=== PATIENT | female | born 1970 | race African-American/Black ===

== ENCOUNTER 2024-06-26 09:04 | Outpatient (AMB) | payer OTHER, SELFPAY ==
--- NOTE | 2024-06-26 09:18 | A.OFFVIS_ITS ---
Intake Visit Reasons: Left knee pain and giving way Intake Note: Rylan is a 54 year old male who presents with complaints of progressively worsening left knee pain and giving way. The patient describes his pain as sharp and severe in nature. Most of the pain is along the medial and posterior aspects of his left knee. The patient states that he did injure his knee several years ago while playing basketball. He twisted his knee and had acute onset of pain. Has not been able to play basketball over the last year because of his pain and symptoms of instability. Has failed the last 6 weeks of conservative treatment which has included physical therapy exercises, Tylenol and anti-inflammatory medicines. At this point the patient's left knee pain and mechanical symptoms are interfering with his activities of daily living and his ability to sleep well through the night. 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 Physical Exam Const Other: Well-nourished well-developed very friendly male awake alert and oriented x3 in no acute distress Extrem Other: Bilateral lower extremity examination shows good capillary refill, no skin lesions noted, normal sensation light touch Left knee examination shows a minimal effusion, minimal crepitus with range of motion, tenderness along his medial joint line, positive Katharina's test, no instability Results Reviewed Results Reviewed: Standing full weight-bearing x-rays of the patient's left knee show mild diffuse joint space narrowing, no acute bony abnormalities Assessment & Plan Assessment & Plan (1) Tear of medial meniscus of left knee: Code(s): S83.242A - Other tear of medial meniscus, current injury, left knee, initial encounter Category: Medical Plan Mr. Rosario presents with progressively worsening left knee pain and mechanical symptoms most likely due to a medial meniscus tear. Thus, I will send the patient for an MRI of his left knee for further evaluation. I will see him back once the MRI is completed to discuss the findings and treatment options. Feel free to call me at any time should questions regarding his orthopedic management arise. Thank you very much for asking me to see this very friendly gentleman. I spent 21 minutes in reviewing the patient's records and imaging studies, seeing the patient and documenting in the medical record. Orders: Orders MR knee LT wo con Today S83.242A - Other tear of medial meniscus, current injury, left knee, initial encounter XR knee LT 3V Today M25.562 - Pain in left knee Coding Level of Care Code New Pt Level 3 (79831) Complex EM visit Add On G2211 Diagnoses Tear of medial meniscus of left knee S83.242A
== END 2024-06-26 09:42 | disposition home or self-care (01) ==
PROVIDERS: Visit Provider Orthopaedic Surgery
DX: S83.242A Other tear of medial meniscus, current injury, left knee, initial encounter (principal)
CPT/HCPCS: 99203; G2211

== ENCOUNTER → 2024-06-26 09:05 | Outpatient (BNV) | payer OTHER, SELFPAY | PROVIDERS: Visit Provider Radiology Diagnostic Radiology | DX: M25.562 Pain in left knee (principal) | CPT/HCPCS: 73562 ==

== ENCOUNTER 2024-06-26 14:29 | Outpatient (REF) | payer OTHER, SELFPAY ==
--- NOTE | ~2024-06-26 | XR_ITS ---
EXAMINATION: XR KNEE 3 VIEWS LEFT HISTORY: M25.562 - Pain in left knee COMPARISON: There are no prior studies available for comparison. FINDINGS: Three views of the left knee are submitted. Osseous mineralization is normal. There is no fracture or dislocation. There is mild narrowing of the medial compartment. The soft tissues are unremarkable. There is no joint effusion. XR/XR knee LT 3V IMPRESSION: Mild narrowing of the medial compartment. Electronically signed by: Deepak Morales MD 06/26/2024 01:21 PM CARIE
== END 2024-06-26 14:30 | disposition home or self-care (01) ==
LOC: HO.HOSX 14:29
PROVIDERS: Visit Provider Orthopaedic Surgery
DX: M25.562 Pain in left knee (principal)
CPT/HCPCS: 73562

== ENCOUNTER → 2024-07-17 07:52 | Outpatient (BNV) | payer OTHER, SELFPAY | PROVIDERS: Visit Provider Radiology Diagnostic Radiology | DX: M17.12 Unilateral primary osteoarthritis, left knee (principal); M71.22 Synovial cyst of popliteal space [Baker], left knee | CPT/HCPCS: 73721 ==

== ENCOUNTER 2024-07-17 08:10 | Outpatient (REF) | payer OTHER, SELFPAY | END 2024-07-17 08:11 | disposition home or self-care (01) | LOC: HO.MRI 08:10 | PROVIDERS: Visit Provider Orthopaedic Surgery | DX: S83.242A Other tear of medial meniscus, current injury, left knee, initial encounter (principal) | CPT/HCPCS: 73721 ==

== ENCOUNTER 2024-08-14 15:13 | Outpatient (REF) | payer OTHER, MEDICAID, SELFPAY ==
--- OUTSIDE RECORDS SUMMARY | 2024-08-15 17:58 | XMS_ITS | Clinical Summary ---
Author Organization [facility] it Address [address] [place] [address] Care Team Providers Care Chemicals Distiller Name Role Phone Royer Snow MD Primary Care Provider [phone] Surgical History Surgery Date Site/Laterality Comments OTHER SURGICAL HISTORY PROCEDURE: DENIES PREVIOUS SURGERY Medical History Medical History Date Comments Allergic rhinitis, cause unspecified 10/04/2005 DX:Allergic rhinitis, cause unspecified Genital herpes, unspecified 10/04/2005 DX:G enital herpes, unspecified Carpal tunnel syndrome 10/04/2005 DX:Carpal tunnel syndrome Unspecified asthma(493.90) 10/04/2005 DX:Un specified asthma(493.90) Family History Medical History Relation Name Comments Other: Chronic renal failure Brother on dialysis, pending transplant Glaucoma Father Other: AIDS Father Stroke Father age 52 Hypertension Maternal Grandfather Other: Kidney disease Maternal Grandfather Hypertension Maternal Grandmother Other: kidney disease Maternal Grandmother Hypertension Mother Other: AIDS Mother age 51 Hypertension Uncle 1 Other: Chronic renal failure Uncle 2 on dialysis Relation Name Status Comments Brother Father STROKE Maternal Grandfather Maternal Grandmother Mother AIDS Uncle 1 Uncle 2 Social History Tobacco Use Types Packs/Day Years Used Date Smoking Tobacco: Never Smokeless Tobacco: Never Alcohol Use Standard Drinks/Week Comments Yes 0 (1 standard drink = 0.6 oz pur e alcohol) Sex and Gender Information Value Date Recorded Sex Assigned at Not on file Legal Sex Male 12:08 PM EST Gender Identity Not on file Sexual Orientation Not on file Obstetrics History Last Filed Vital Signs Vital Sign Reading Time Taken Comments Blood Pressure 100/70 12/21/2021 7:50 AM EDT Pulse 72 12/21/2021 7:50 AM EDT Temperature - - Respiratory Rate - - Oxygen Saturation - - Inhaled Oxygen Concentration - - Weight 63.5 kg (140 lb) 12/21/2021 7:50 AM EDT Height 170.2 cm (5' 7 ) 12/21/2021 7:50 AM EDT Body Mass Index 21.93 12/21/2021 7:50 AM EDT Plan of Treatment Health Maintenance Due Date Last Done Comments Pneumococcal Vaccine: 50+ Years (1 of 2 - PCV) 01/07/1987 Pneumococcal Vaccine: Pediatrics (0 to 5 Years) and At-Risk Patients (6 to 64 Years) (1 of 2 - PCV) 01/07/1987 Zoster Vaccines (1 of 2) 01/07/2018 Cholesterol Screening (Lipid Panel) 05/04/2022 Colorectal Cancer Screening: Colonoscopy 05/04/2022 Depression Screening 05/04/2022 HIV Screening 05/04/2022 Hepatitis C Screening 05/04/2022 Social Influencers of Health Screening 05/04/2022 DTaP,Tdap,and Td Vaccines (3 - Td or Tdap) 02/23/2023 02/23/2013, 08/06/2004 COVID-19 Vaccine (3 - 2023-2 5 season) 2024 10/30/2020, 10/09/2020 Influenza Vaccine (#1) 2024 04/23/2010 Hepatitis A Vaccines Aged Out 10/04/2008 No long er eligible based on patient's age to complete this topic Hepatitis B Vaccines Completed 04/04/2009, 11/08/2008, 10/04/2008 HIB Vaccines Aged Out No longer eligi ble based on patient's age to complete this topic HPV Vaccines Aged Out No longer eligi ble based on patient's age to complete this topic IPV Vaccines Aged Out No longer eligi ble based on patient's age to complete this topic MMR Vaccines Aged Out No longer eligi ble based on patient's age to complete this topic Meningococcal ACWY Vaccine Aged Out N o longer eligible based on patient's age to complete this topic Meningococcal B Vacine Aged Out No lo nger eligible based on patient's age to complete this topic RSV Immunization Patients Under 20 months Aged Out No longer eligible b ased on patient's age to complete this topic Varicella Vaccines Aged Out No longer eligible based on patient's age to complete this topic Care Teams Chemicals Distiller Relationship Specialty Start Date End Date Royer Snow MD [facility] [address], [address] [place], [place] PCP - General Internal Medicine 12/10/13
--- OUTSIDE RECORDS SUMMARY | 2024-08-15 17:58 | XMS_ITS | Data Portability ---
Author Organization CATERINA Morgan [facility] [address] Address [address] [place] [address] Assessment No assessment recorded. Plan of Treatment Reminders Order Date Submit Date Provider Last Modified By Organization Details Last Modified Time Details Appointments None recorded. Lab None recorded. Referral None recorded. Procedures None recorded. Surgeries None recorded. Imaging None recorded. Medication Orders meloxicam 15 mg tablet 2023 [address] [facility] #[id number], [phone] [place], [address], 19:28:13 Patient TargetsNo targets recorded. Patient Instructions Encounter Date Encounter Id Patient Instructions Last Modified By Organization Details Last Modified Time 04/28/2024 [id number] shoulder pain: care instructions Not available 04/28/2024 19:28:11 biceps tendinitis: exercises Not available 04/28/2024 19:28:11 Reason for Referral None Reported. Problems Name Problem SNOMED Code Status Onset Date Resolution Date Notes Provider Name and Address Organization Details Recorded Time Asthma 770633028 Active Carol sexton PA - [facility] 04/28/2024 19:18:34 Problem Notes None recorded. Medical Equipment None Reported. Allergies Allergen ID Allergen Name Allergen Category Reaction Reaction Severity Criticality Documentation Date Start Date Code Code System Note Provider Name and Address Organization Details Recorded Time 0257099 aspirin medicatio n Not available Not available Not available 04/28/2024 1191 RxNorm Carol sexton PA - [facility] 19:18:00 8843429 Product containin g penicilli n (product) medicatio n Not available Not available Not available 04/28/2024 95727 8001 SNOMED Carol sexton PA - [facility] 19:18:07 Medications Name Sig Start Date Stop Date Status Note LastModified by Organization Details LastModified Time meloxicam 15 mg tablet TAKE 1 TABLET BY MOUTH EVERY DAY FOR 30 DAYS active Not Available Not Available No t Available albuterol sulfate active Not Available Not Available Not Available Vitals Date Recorded Body height Body mass index (BMI) Body weight Oxygen saturation Oxygen saturation in Arterial blood by Pulse oximetry Heart rate Respiratory rate Body temperature Systolic blood pressure Diastolic blood pressure Provider Name and Address Organization Details Last Updated DateTime 170.18 cm 22.4 kg/m2 66904.7 1 g 100 % 100 % 98 /min 20 /min 97.8 [degF] 110 mm[Hg] 70 mm[Hg] Carol Ruvalcaba PA - [facility] 19:26:08 Social History Question Answer Notes LastModified by Organizat ion Details LastModified Time Tobacco Smoking Status Never Smoker Carol sexton PA - [facility] 04/28/2024 19:19:03 What Is Your Level Of Alcohol Consumption? None Information not available 04/28/2024 Are You Currently Employed? Yes Information not available 04/28/2024 Have You Had A Flu Shot This Season? No Information not available 04/28/2024 If No, Would You Like A Flu Shot Today? No Information not available 04/28/2024 What Is Your Water Source? Other Information not available 04/28/2024 What Is Your Heat Source? Other Information not available 04/28/2024 Are You Passively Exposed To Smoke? No Information no t available 04/28/2024 Do You Use Any Illicit Or Recreational Drugs? No Information not available 04/28/2024 Have You Recently Traveled Abroad? No Information not available 04/28/2024 Do You Or Have You Ever Used Any Other Forms Of Tobacco Or Nicotine? No Information not available 04/28/2024 Sex: Unknown Functional Status None recorded. Mental Status None recorded. Family History Relationship Description Onset Age of this Age Resolved Age Notes LastModified by Organization Details LastModified Time Father No current problems or disability Not available 04/28 19:18:37 Mother No current problems or disability Not available 04/28 19:18:37 Medical History No medical history recorded. Past Encounters Encounter ID Performer Location Encounter Start Date Encounter Closed Date Diagnosis/Indication Diagnosis SNOMED-CT Code Diagnosis ICD10 Code Diagnosis Note [id number] [address] [facility] , [place] [address] 05/13/2016 11:20:44 05/13/2016 11:36:56 [id number] [address] [facility] , [place] [id number] 08/02/2020 13:25:56 08/02/2020 14:15:46 [id number] [address] [facility] [place] [address] 02/15/2021 08:30:13 02/15/2021 09:22:09 [id number] [facility] [address] [facility] [place] [address] 04/28/2024 19:09:11 04/28/2024 19:28:53 Biceps tendinitis [id number] M75.22 You have been diagnosed with a Biceps tendonitis .. The following are my recommenda tion to help you with your discomfort .1. Stretch in the AM and PM - especially when you first wake up.2. Heating pad or Ice to the area whatever feels better.3. No heavy lifting and no sports until you are feeling a little better.4. OK to take Tylenol to help supplement with the pain unless you have an allergy.5. Stop Smoking if you smoke this can increase muscle/lig ament pain - this has been proven in studies.6. Do not carry heavy items with this arm. If any of the following symptoms develop:1. Numbness in your hand.2. Worsening pain3. Lymph nodes in neck or armpit4. Skin Redness5. Heat from the muscle. Thank you for using [employer] , please call if you have any questions or concerns. Health Concerns Section Related Observation LastModified by Organization Detai ls LastModified Time None Recorded Concern Status LastModified by Organization Details LastModified Time None Recorded Advance Directives Directive None Recorded Payers Encounter Date Sequence Insurance Name Policy Number Policy Vega Covered Member ID Vega Member ID Guarantor Name 08/02/2020 1 [facility] [id number] Rylan Rosario [id number] Rylan Rosario 04/28/2024 1 [facility] [id number] Rylan Rosario [id number] Rylan Rosario Notes Date Note Type Note Provider Name and Address Organization Details Recorded Time 04/28/2024 text/html 54 y/o male here with L shoulder pain starting this morning. 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
== END 2024-08-14 15:14 | disposition home or self-care (01) ==
LOC: HO.HOSX 15:13
PROVIDERS: Visit Provider Orthopaedic Surgery
DX: Z13.89 Encounter for screening for other disorder (principal)

== ENCOUNTER 2024-08-16 09:33 | Outpatient (AMB) | payer OTHER, SELFPAY ==
--- NOTE | 2024-08-16 09:40 | A.OFFVIS_ITS ---
Intake Visit Reasons: OV- Left knee MRI review Intake Note: Rylan is a 54 year old male who presents with complaints of progressively worsening left knee pain and giving way. The patient describes his pain as sharp and severe in nature. Most of the pain is along the medial and posterior aspects of his left knee. The patient states that he did injure his knee several years ago while playing basketball. He twisted his knee and had acute onset of pain. Has not been able to play basketball over the last year because of his pain and symptoms of instability. Has failed the last 6 weeks of conservative treatment which has included physical therapy exercises, Tylenol and anti-inflammatory medicines. At this point the patient's left knee pain and mechanical symptoms are interfering with his activities of daily living and his ability to sleep well through the night. 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 Physical Exam Const Other: Well-nourished well-developed very friendly male awake alert and oriented x3 in no acute distress Extrem Other: Bilateral lower extremity examination shows good capillary refill, no skin lesions noted, normal sensation light touch Left knee examination shows a minimal effusion, mild crepitus with range of motion, tenderness along his medial joint line, positive Katharina's test, no instability Results Reviewed Results Reviewed: Standing full weight-bearing x-rays of the patient's left knee show mild diffuse joint space narrowing, no acute bony abnormalities MRI of the patient's left knee shows mild diffuse degenerative changes as well as a tear of the medial meniscus Assessment & Plan Assessment & Plan (1) Tear of medial meniscus of left knee: Code(s): S83.242A - Other tear of medial meniscus, current injury, left knee, initial encounter Category: Medical Plan Mr. Rosario presents with progressively worsening left knee pain and mechanical symptoms due to a medial meniscus tear. I had a lengthy discussion with the patient regarding the treatment options. At this point he has failed continued non operative treatments. The risks and benefits of left knee arthroscopic surgery were discussed at length with the patient. The patient wishes to proceed with surgery. Surgery will most likely involve left knee arthroscopic partial medial meniscectomy. The patient does understand that he may not get 100% relief of his symptoms depending on the severity of his degenerative changes. The patient will be scheduled for next available date. He will follow-up as instructed. I spent 20 minutes in reviewing the patient's records and imaging studies, seeing the patient and documenting in the medical record. Coding Level of Care Code Est Pt Level 3 (64274) Complex EM visit Add On G2211 Diagnoses Tear of medial meniscus of left knee S83.242A
--- OUTSIDE RECORDS SUMMARY | 2024-08-16 11:23 | XMS_ITS | Clinical Summary ---
Author Organization [facility] it Address [address] [place] [address] Care Team Providers Care Caterers Helper Name Role Phone Royer Snow MD Primary Care Provider [phone] Surgical History Surgery Date Site/Laterality Comments OTHER [...] age to complete this topic Care Teams Caterers Helper Relationship Specialty Start Date End Date Royer Snow MD [facility] [address], [address] [place], [place] PCP - General Internal Medicine 12/10/13
== END 2024-08-16 09:55 | disposition home or self-care (01) ==
LOC: HO.HOS 09:34
PROVIDERS: Visit Provider Orthopaedic Surgery
DX: S83.242A Other tear of medial meniscus, current injury, left knee, initial encounter (principal)
CPT/HCPCS: 99213; G2211

== ENCOUNTER → 2024-08-16 09:33 | Outpatient (BNVA) | payer OTHER, SELFPAY | PROVIDERS: Visit Provider Orthopaedic Surgery ==

== ENCOUNTER 2024-09-11 13:59 | Outpatient (AMB) | payer OTHER, SELFPAY ==
--- NOTE | 2024-09-11 14:05 | MHC.OFFVIS ---
Intake Visit Reasons: Bilateral knee pains and giving way Intake Note: Rylan is a 54 year old male who presents with complaints of progressively worsening left knee pain and giving way. The patient describes his pain as sharp and severe in nature. Most of the pain is along the medial and posterior aspects of his left knee. The patient states that he did injure his knee several years ago while playing basketball. He twisted his knee and had acute onset of pain. Has not been able to play basketball over the last year because of his pain and symptoms of instability. Has failed the last 6 weeks of conservative treatment which has included physical therapy exercises, Tylenol and anti-inflammatory medicines. At this point the patient's left knee pain and mechanical symptoms are interfering with his activities of daily living and his ability to sleep well through the night. The patient also reports progressively worsening right knee pain and giving way. He describes his right knee pain as sharp in nature. His right knee pain has gotten worse over the last year in spite of continued non operative treatments. He states that his right knee will give out several times per day. 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 Physical Exam Const Other: Well-nourished well-developed very friendly male awake alert and oriented x3 in no acute distress Extrem Other: Bilateral lower extremity examination shows good capillary refill, no skin lesions noted, normal sensation light touch Bilateral knee examination shows minimal effusions, minimal crepitus with range of motion, tenderness along his medial joint lines, positive Katharina's test, no instability Results Reviewed Results Reviewed: Standing full weight-bearing x-rays of the patient's bilateral knee show minimal diffuse joint space narrowing, no acute bony abnormalities MRI of the patient's left knee shows mild diffuse degenerative changes as well as a tear of the medial meniscus Assessment & Plan Assessment & Plan (1) Tear of medial meniscus of right knee: Code(s): S83.241A - Other tear of medial meniscus, current injury, right knee, initial encounter Category: Medical Plan Mr. Rosario presents with progressively worsening left knee pain and mechanical symptoms due to a medial meniscus tear. At this point the patient has failed continued non operative treatments. The risks and benefits of left knee arthroscopic surgery were discussed at length with the patient. The patient wishes to proceed with surgery. Surgery will most likely involve left knee arthroscopic partial medial meniscectomy. The patient does understand that he may not get 100% relief of his symptoms depending on the severity of his degenerative changes. The patient also has right knee pain and giving way most likely due to a medial meniscus tear. Thus, I will send the patient for an MRI of his right knee for further evaluation. I will see him back once the MRI is completed to discuss the findings and treatment options. Feel free to call me at any time should questions regarding his orthopedic management arise. I spent 22 minutes in reviewing the patient's records and imaging studies, seeing the patient and documenting in the medical record. Orders: Orders MR knee RT wo con 09/26/24 S83.241A - Other tear of medial meniscus, current injury, right knee, initial encounter Coding Level of Care Code Est Pt Level 3 (06358) Complex EM visit Add On G2211 Diagnoses Tear of medial meniscus of right knee S83.241A
--- OUTSIDE RECORDS SUMMARY | 2024-09-11 17:06 | XMS_ITS | Clinical Summary ---
Author Organization [facility] it Address [address] [place] [address] Care Team Providers Care Refinery Pipeline Operator Name Role Phone Royer Snow MD Primary Care Provider [phone] Surgical History Surgery Date Site/Laterality Comments OTHER [...] age to complete this topic Meningococcal B Vaccine Aged Out No l onger eligible based on patient's age to complete this topic RSV Immunization Patients Under 20 months Aged Out No longer eligible b ased on patient's age to complete this topic Varicella Vaccines Aged Out No longer eligible based on patient's age to complete this topic Care Teams Refinery Pipeline Operator Relationship Specialty Start Date End Date Royer Snow MD [facility] [address], [address] [place], [place] PCP - General Internal Medicine 12/10/13
--- OUTSIDE RECORDS SUMMARY | 2024-09-11 17:07 | XMS_ITS | Data Portability ---
Author Organization CATERINA Morgan s [address] Address [address] [place] [address] Assessment No assessment recorded. Plan of Treatment Reminders Order Date Submit Date Provider Last Modified By Organization Details Last Modified Time Details Appointments None recorded. Lab None recorded. Referral None recorded. Procedures None recorded. Surgeries None recorded. Imaging None recorded. Medication Orders meloxicam 15 mg tablet 2023 024 [facility]/Pharmacy #[id number], [phone] [place], [address], 19:28:13 Patient TargetsNo targets recorded. Patient Instructions Encounter Date Encounter Id Patient Instructions Last Modified By Organization Details Last Modified Time 04/28/2024 [id number] shoulder pain: care instructions Not available 04/28/2024 19:28:11 biceps tendinitis: exercises Not available 04/28/2024 19:28:11 Reason for Referral None Reported. Problems Name Problem SNOMED Code Status Onset Date Resolution Date Notes Provider Name and Address Organization Details Recorded Time Asthma 886378557 Active Carol sexton PA - [facility] 04/28/2024 19:18:34 Problem Notes None recorded. Medical Equipment None Reported. Allergies Allergen ID Allergen Name Allergen Category Reaction Reaction Severity Criticality Documentation Date Start Date Code Code System Note Provider Name and Address Organization Details Recorded Time 6705758 aspirin medicatio n Not available Not available Not available 04/28/2024 1191 RxNorm Carol sexton PA - [facility] 19:18:00 1879441 Product containin g penicilli n (product) medicatio n Not available Not available Not available 04/28/2024 07006 8001 SNOMED Carol sexton [facility] - [facility] [...] Last Updated DateTime 170.18 cm 22.4 kg/m2 22802.7 1 g 100 % 100 % 98 [...] SNOMED-CT Code Diagnosis ICD10 Code Diagnosis Note [id number] [address] [facility] , [place] [address] 05/13/2016 11:20:44 05/13/2016 11:36:56 [id number] [address] [facility] , [place] [address] 08/02/2020 13:25:56 08/02/2020 14:15:46 [id number] [address] [place] [address] 02/15/2021 08:30:13 02/15/2021 09:22:09 [id number] CATERINA Guy [address] [place] [address] 04/28/2024 19:09:11 04/28/2024 19:28:53 Biceps tendinitis [id number] M75.22 You have been diagnosed with a [...] from the muscle. Thank you for using [employer] , please call if you have any questions or concerns. Health Concerns Section Related Observation LastModified by Organization Detai ls LastModified Time None Recorded Concern Status LastModified by Organization Details LastModified Time None Recorded Advance Directives Directive None Recorded Payers Encounter Date Sequence Insurance Name Policy Number Policy Vega Covered Member ID Vega Member ID Guarantor Name 08/02/2020 1 [facility] [id number] Rylan Rosario [id number] Rylan Rosario 04/28/2024 1 [facility] [id number] Rylan Rosario [id number] Rylan Rosario Notes Date Note Type Note Provider Name and Address Organization Details Recorded Time 04/28/2024 text/html 54 y/o male here with L shoulder pain starting this morning. 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
== END 2024-09-11 14:17 | disposition home or self-care (01) ==
LOC: HO.HOS 14:00
PROVIDERS: PCP Nurse Practitioner Family; Visit Provider Orthopaedic Surgery
DX: S83.241A Other tear of medial meniscus, current injury, right knee, initial encounter (principal)
CPT/HCPCS: 99214; G2211

== ENCOUNTER → 2024-09-11 13:59 | Outpatient (BNVA) | payer OTHER, MEDICAID, SELFPAY | PROVIDERS: PCP Nurse Practitioner Family; Visit Provider Orthopaedic Surgery ==

== ENCOUNTER 2024-09-14 07:04 | Outpatient (REF) | payer OTHER, SELFPAY ==
--- NOTE | ~2024-09-14 | MR_ITS ---
EXAMINATION: MRI RIGHT KNEE WITHOUT CONTRAST HISTORY: S83.241A - Other tear of medial meniscus, current injury, right knee COMPARISON: There are no prior studies for comparison. TECHNIQUE: Coronal T1 and fat-suppressed proton density, sagittal proton density and fat-suppressed proton density, and axial fat suppressed T2 weighted MR images of the right knee were obtained. FINDINGS: The examination is limited by patient motion. Bone marrow: Bone marrow signal intensity is normal. Joint effusion: There is a large suprapatellar joint effusion. Tejeda's cyst: There is a small Tejeda's cyst. Articular cartilage: There is a focal cartilage defect involving the medial femoral condyle (series 13, image 19). There are tiny cartilage fissures involving the medial and lateral patellar facets a series 8, image 8). Muscles/soft tissues: The visualized muscles demonstrate normal signal intensity. Anterior cruciate ligament: Intact Posterior cruciate ligament: Intact Medial collateral ligament: Intact Lateral collateral ligament: Intact Medial meniscus: There is a horizontally oriented linear focus of increased signal intensity within the posterior body and posterior horn which contacts the inferior joint surface, consistent with a tear. The anterior horn is intact. Lateral meniscus: Intact Flexor mechanism: The popliteus, gastrocnemius, and hamstring tendons are intact. Quadriceps tendon: Intact Patellar tendon: Intact Patellar retinacula: Intact MR/MR knee RT wo con IMPRESSION: 1. Focal cartilage defect involving the medial femoral condyle. Tiny cartilage fissures involving the patellar cartilage. 2. Horizontal tear of the posterior body and posterior horn of the medial meniscus. 3. Large suprapatellar joint effusion. Small Tejeda's cyst. Electronically signed by: Deepak Morales MD 09/14/2024 08:07 AM EDT
--- OUTSIDE RECORDS SUMMARY | 2024-09-14 07:07 | XMS_ITS | Data Portability ---
Author Organization CATERINA Morgan s [address] Address [address] [place] [address] Assessment No assessment recorded. Plan of Treatment Reminders Order Date Submit Date Provider Last Modified By Organization Details Last Modified Time Details Appointments None recorded. Lab None recorded. Referral None recorded. Procedures None recorded. Surgeries None recorded. Imaging None recorded. Medication Orders meloxicam 15 mg tablet 2023 024 [facility]/Pharmacy #[id number], [phone] [place], [address], 19:28:13 Patient TargetsNo targets recorded. Patient Instructions Encounter Date Encounter Id Patient Instructions Last Modified By Organization Details Last Modified Time 04/28/2024 [id number] shoulder pain: care instructions Not available 04/28/2024 19:28:11 biceps tendinitis: exercises Not available 04/28/2024 19:28:11 Reason for Referral None Reported. Problems Name Problem SNOMED Code Status Onset Date Resolution Date Notes Provider Name and Address Organization Details Recorded Time Asthma 794191073 Active Carol sexton PA - [facility] 04/28/2024 19:18:34 Problem Notes None recorded. Medical Equipment None Reported. Allergies Allergen ID Allergen Name Allergen Category Reaction Reaction Severity Criticality Documentation Date Start Date Code Code System Note Provider Name and Address Organization Details Recorded Time 3757326 aspirin medicatio n Not available Not available Not available 04/28/2024 1191 RxNorm Carol sexton PA - [facility] 19:18:00 3729860 Product containin g penicilli n (product) medicatio n Not available Not available Not available 04/28/2024 00011 8001 SNOMED Carol sexton PA - [facility] [...] Last Updated DateTime 170.18 cm 22.4 kg/m2 61413.7 1 g 100 % 100 % 98 [...] SNOMED-CT Code Diagnosis ICD10 Code Diagnosis Note [id number] [address] [facility] , [place] [address] 05/13/2016 11:20:44 05/13/2016 11:36:56 [id number] [address] [facility] , [place] [address] 08/02/2020 13:25:56 08/02/2020 14:15:46 [id number] [address] [place] [address] 02/15/2021 08:30:13 02/15/2021 09:22:09 [id number] CATERINA Guy [address] [place] [address] 04/28/2024 19:09:11 04/28/2024 19:28:53 Biceps tendinitis [id number] M75.22 You have been diagnosed with a [...] from the muscle. Thank you for using [employer] , please call if you have any questions or concerns. Health Concerns Section Related Observation LastModified by Organization Detai ls LastModified Time None Recorded Concern Status LastModified by Organization Details LastModified Time None Recorded Advance Directives Directive None Recorded Payers Encounter Date Sequence Insurance Name Policy Number Policy Vega Covered Member ID Vega Member ID Guarantor Name 08/02/2020 1 [facility] [id number] Rylan Rosario [id number] Rylan Rosario 04/28/2024 1 [facility] [id number] Rylan Rosario [id number] Rylan Rosario Notes Date Note Type Note Provider Name and Address Organization Details Recorded Time 04/28/2024 text/html 54 y/o male here with L shoulder pain starting this morning. 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
== END 2024-09-14 07:05 | disposition home or self-care (01) ==
LOC: HO.MRI 07:04
PROVIDERS: Visit Provider Orthopaedic Surgery
DX: S83.241A Other tear of medial meniscus, current injury, right knee, initial encounter (principal)
CPT/HCPCS: 73721

== ENCOUNTER → 2024-09-14 07:09 | Outpatient (BNV) | payer OTHER, SELFPAY | PROVIDERS: Visit Provider Radiology Diagnostic Radiology | DX: S83.241A Other tear of medial meniscus, current injury, right knee, initial encounter (principal); M71.21 Synovial cyst of popliteal space [Baker], right knee | CPT/HCPCS: 73721 ==

== ENCOUNTER 2024-09-17 07:24 | Day surgery (SDC) | payer OTHER, SELFPAY ==
[2024-09-17 07:36] VITALS: BP 142/87; PULSE 80; RESP 18; TEMP 36.6; O2SAT 97; BMI 23.1
[2024-09-17] MEDS: Lactated Ringers 1,000 ML 50 ML IVCONT (07:53)
--- NOTE | 2024-09-17 08:30 | P.CONAN_ITS ---
[facility] Active Problems Active Problems: All Active Problems (Updated 09/17/24 @ 07:40 by Jen Bocanegra RN) Tear of medial meniscus of right knee (Acute) Right shoulder pain (Acute) Tear of medial meniscus of left knee (Acute) Left knee pain (Acute) Past Medical History Medical History (Updated 09/17/24 @ 07:40 by Jen Bocanegra RN) Seasonal allergies Family History Family history of problems with anesthesia: No Surgical History Surgical History (Updated 09/17/24 @ 07:40 by Jen Bocanegra RN) [place] teeth extracted History of Problems with Anesthesia: No Social History Social History Patient Tobacco Use Status: Never used Tobacco Have you been hit, kicked, punched, or otherwise hurt by someone within the past year? 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 Meds Allergies Allergy/AdvReac Type Severity Reaction Status Date / Time aspirin Allergy Unknown Unknown Verified 09/11/24 14:11 penicillin G Allergy Unknown Unknown Verified 09/11/24 14:11 Active Medications: Current Medications Lactated Ringer's (Lr) 1,000 mls @ 50 mls/hr IVCONT .Q20H MICAELA Last Admin: 09/17/24 07:53 Dose: 50 mls/hr Home Medications ?Medication ?Instructions ?Recorded ?Confirmed ?Last Taken ?Type ruxolitinib 1.5 % topical cream appl topical 06/26/24 09/11/24 09/10/24 History (Opzelura) albuterol sulfate 90 mcg/actuation 1 puff inhalation QID PRN wheezing 09/17/24 09/17/24 09/10/24 History aerosol inhaler (Ventolin HFA) famotidine 20 mg tablet 20 mg PO BEDTIME 09/17/24 09/17/24 09/16/24 History loratadine 10 mg tablet 10 mg PO DAILY 09/17/24 09/17/24 09/10/24 History Exam Height,Weight and Vital Signs: Height 5 ft 7 in Weight 66.8 kg Last Vital Signs Temp 98 F 09/17/24 07:36 Pulse 80 09/17/24 07:36 Resp 18 09/17/24 07:36 BP 142/87 H 09/17/24 07:36 Pulse Ox 97 09/17/24 07:36 O2 Del Method Room Air 09/17/24 07:36 Airway Mallampati Class: II TM Dist: >3cm Neck ROM: Full Heart: rrr Lungs: cta Assessment and Plan Assessment Anesthesia Assessment: Anesthesia Plan Discussed and Chart Reviewed Final Anesthetic Review Family History of Problems with Anesthesia: No History of Problems with Anesthesia: No NPO: Yes ASA Class: II Final Preanesthetic Review: No Changes in Pt Med Stat, Meds/Allgs Chart Reviewed and Consent Obtained/Reviewed Patient Risk: Low Procedure Risk: Low Anesthetic Plan Anesthetic Plan: GA Disposition: Standard PACU
[2024-09-17] MEDS: Clindamycin Phosphate/D5W 900 MG/50 ML PIGGYBACK 50 MG IV (08:55)
[2024-09-17 09:42] VITALS: BP 124/74; PULSE 85; RESP 16; TEMP 36.8; O2SAT 100
[2024-09-17 09:45] VITALS: BP 115/81; PULSE 80; RESP 16; O2SAT 99
[2024-09-17 09:50] VITALS: BP 118/79; PULSE 83; RESP 16; O2SAT 99
[2024-09-17 09:55] VITALS: PULSE 74; RESP 18; O2SAT 99
--- NOTE | 2024-09-17 09:56 | PM.OP ---
Brief Operative Note Date of Service: 09/17/24 Pre-op diagnosis: Left knee medial meniscus tear, left knee degenerative joint disease Post-op diagnosis: same Procedure: Left knee arthroscopic partial medial meniscectomy, left knee arthroscopic chondroplasty of the undersurface of the patella, medial femoral condyle and trochlear groove Implants: none Surgeon: Valerio Gifford MD Anesthesia: GLMA Was an Fixed Wing Aircraft Flight Mechanic used for this Procedure?: No Estimated blood loss (mL): 10 Pathology: none sent Condition: stable Disposition: PACU
--- NOTE | 2024-09-17 09:57 | W.PM.OPN ---
Operative Note Operative Note Date of Service: 09/17/24 Narrative: After the patient was identified as Rylan Rosario and his left knee was initialed by myself they were brought to the operating room where general anesthesia was induced by the anesthesiologist in routine fashion. Because of the patient's allergy to penicillin he was given 900 mg of IV clindamycin preoperatively for infection prophylaxis. The patient's left lower extremity was prepped and draped in sterile fashion. A formal time-out was completed. Marcaine was injected into the planned incision sites as well as the patient's left knee joint. A #11 scalpel blade was used to make an anterolateral portal 1 cm proximal to the joint line and 1 cm lateral to the patellar tendon. Blunt trocar technique was used to enter the suprapatellar pouch with the knee in extension. Diagnostic arthroscopy showed multiple bands of thickened plica which would be excised at the end of the procedure. There were no loose bodies or abnormalities found in either the medial or lateral gutters. The articular surface of the patella showed diffuse grades 1 and 2 degenerative changes. The trochlear groove articular surface showed diffuse grades 2 and 3 degenerative changes. The patient's knee was flexed to 45 degrees and a valgus force was placed upon it. The medial compartment was entered. An anteromedial portal was made 1 cm proximal to the joint line and 1 cm medial to the patellar tendon. Probing of the medial meniscus showed a radial tear of the posterior horn. A partial medial meniscectomy was performed using the arthroscopic shaver. Following the partial meniscectomy the remainder of the meniscus tissue was stable. There were diffuse grades 1 and 2 degenerative changes of the medial femoral condyle as well as grade 1 degenerative changes of the medial tibial plateau. The articular surface of the medial femoral condyle was then made smooth using the arthroscopic shaver. The articular surface of the medial tibial plateau was already smooth so no chondroplasty was indicated. The patient's knee was placed into a neutral position. There was no injury to the anterior cruciate ligament. The patient's knee was then placed in the figure of 4 position and the lateral compartment was entered. There was no evidence of lateral meniscus tearing. There were minimal degenerative changes of the lateral femoral condyle and lateral tibial plateau. The patient's knee was once again brought into extension and the suprapatellar pouch was entered. The arthroscopic shaver and the ArthroCare Wand were used to excise the thickened bands of plica. The undersurface of the patella and the trochlear groove articular surface were then made smooth using the arthroscopic shaver. The knee joint was irrigated and then drained. All arthroscopic instruments were removed. The 2 portals were closed with 3-0 nylon interrupted suture. The knee joint was injected with Marcaine. Dry sterile dressing and Claude bandages were placed over the patient's knee. The patient was awoken and extubated in the operating room. The patient was transferred to the recovery room in stable condition.
[2024-09-17 10:10] VITALS: BP 131/78; PULSE 70; RESP 16; TEMP 36.6; O2SAT 99
== END 2024-09-17 10:47 | disposition home or self-care (01) ==
PROVIDERS: PCP Nurse Practitioner Family; Visit Provider Orthopaedic Surgery
PROC: (CPT 29870; principal; 2024-09-17 09:00)
DX: S83.242A Other tear of medial meniscus, current injury, left knee, initial encounter (principal); M17.12 Unilateral primary osteoarthritis, left knee; M67.52 Plica syndrome, left knee; M25.562 Pain in left knee; M23.52 Chronic instability of knee, left knee; X50.1XXA Overexertion from prolonged static or awkward postures, initial encounter; Y93.67 Activity, basketball; Y92.9 Unspecified place or not applicable; Y99.9 Unspecified external cause status; J30.2 Other seasonal allergic rhinitis; Z79.899 Other long term (current) drug therapy; Z88.0 Allergy status to penicillin; Z88.6 Allergy status to analgesic agent
CPT/HCPCS: 29881; J0131; J0171; J0736; J1100; J1885; J2003; J2250; J2405; J2704; J2795; J3010

== ENCOUNTER → 2024-09-17 07:24 | Outpatient (BNV) | payer OTHER, SELFPAY | PROVIDERS: PCP Nurse Practitioner Family; Visit Provider Orthopaedic Surgery | DX: S83.242A Other tear of medial meniscus, current injury, left knee, initial encounter (principal) | CPT/HCPCS: 29881 ==

== ENCOUNTER 2024-10-02 13:41 | Outpatient (AMB) | payer OTHER, SELFPAY ==
--- NOTE | 2024-10-02 13:43 | MHC.OFFVIS ---
Intake Visit Reasons: Bilateral knee pains, PO LT knee 09/17/24 DR, Right knee pain and giving way Intake Note: Rylan is a 54 year old male who presents with complaints of progressively worsening right knee pain and giving way. The patient did undergo left knee arthroscopic surgery on 09/17/2024. He reports minimal discomfort in his left knee. He describes his right knee pain as sharp in nature. He did injure his right knee several years ago. Since that time his symptoms have gotten progressively worse. He states that his right knee will give out several times per day. He has failed the last 6 weeks of conservative treatment which has included a home exercise program, physical therapy exercises, Tylenol and anti-inflammatory medicines. He has been walking with a crutch because of his right knee pain and mechanical symptoms. Allergies aspirin Allergy (Unknown, Verified 10/02/24 13:44) Unknown penicillin G Allergy (Unknown, Verified 10/02/24 13:44) Unknown Medication List - Last Reconciled 10/02/24 by Valerio Gifford MD albuterol sulfate 90 mcg/actuation (Ventolin HFA) 1 puff inhalation QID PRN famotidine 20 mg PO BEDTIME loratadine 10 mg PO DAILY meloxicam 15 mg PO DAILY PRN oxycodone 5 mg PO Q12H PRN ruxolitinib 1.5% (Opzelura) appl topical PFSH Medical History Seasonal allergies Surgical History [place] teeth extracted Social History Patient Tobacco Use Status: Never used Tobacco Current occupational status: employed 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 Physical Exam Const Other: Well-nourished well-developed very friendly male awake alert and oriented x3 in no acute distress Extrem Other: Bilateral lower extremity examination shows good capillary refill, no skin lesions noted, normal sensation light touch Left knee examination shows that the surgical incisions are healing well, no erythema, minimal discomfort with range of motion, no instability Right knee examination shows a mild effusion, minimal crepitus with range of motion, tenderness along his medial joint line, positive Katharina's test Results Reviewed Results Reviewed: Standing full weight-bearing x-rays of the patient's right knee taken previously show minimal diffuse joint space narrowing, no acute bony abnormalities MRI of the patient's right knee shows mild diffuse degenerative changes as well as a tear of the medial meniscus Assessment & Plan Assessment & Plan (1) Tear of medial meniscus of right knee: Code(s): S83.241A - Other tear of medial meniscus, current injury, right knee, initial encounter Category: Medical (2) Right knee pain: Code(s): M25.561 - Pain in right knee Category: Medical (3) Left knee pain: Code(s): M25.562 - Pain in left knee Category: Medical Plan Mr. Rosario is doing well after undergoing left knee arthroscopic surgery on 09/17/2024. His sutures were removed and Steri-Strips placed over his incisions. He does have progressively worsening right knee pain and mechanical symptoms due to a medial meniscus tear. I had a lengthy discussion with the patient regarding the treatment options. At this point he has failed continued non operative treatments. The risks and benefits of right knee arthroscopic surgery were discussed at length with the patient. The patient wishes to proceed with surgery. Surgery will most likely involve right knee arthroscopic partial medial meniscectomy. The patient will be scheduled for next available date. He will follow-up as instructed. Feel free to call me at any time should questions regarding his orthopedic management arise. I spent 21 minutes in reviewing the patient's records and imaging studies, seeing the patient and documenting in the medical record. Coding Level of Care Code Est Pt Level 3 (19641) Complex EM visit Add On G2211 Diagnoses Tear of medial meniscus of right knee S83.241A Right knee pain M25.561 Left knee pain M25.562
--- OUTSIDE RECORDS SUMMARY | 2024-10-02 15:47 | XMS_ITS | Clinical Summary ---
Author Organization [facility] it Address [address] [place] [address] Care Team Providers Care Senior Geologist Name Role Phone Royer Snow MD Primary Care Provider [phone] Surgical History Surgery Date Site/Laterality Comments OTHER [...] 5 season) 2024 10/30/2020, 10/09/2020 Influenza Vaccine (Season Ended) 2025 04/23/2010 Hepatitis A Vaccines Aged Out 10/04/2008 [...] age to complete this topic Care Teams Senior Geologist Relationship Specialty Start Date End Date Royer Snow MD [facility] [address] [place], [place] PCP - General Internal Medicine 12/10/13
== END 2024-10-02 14:05 | disposition home or self-care (01) ==
LOC: HO.HOS 13:42
PROVIDERS: PCP Nurse Practitioner Family; Visit Provider Orthopaedic Surgery
DX: S83.241A Other tear of medial meniscus, current injury, right knee, initial encounter (principal); M25.561 Pain in right knee; M25.562 Pain in left knee
CPT/HCPCS: 99213; G2211

== ENCOUNTER → 2024-10-02 13:41 | Outpatient (BNVA) | payer OTHER, MEDICAID, SELFPAY | PROVIDERS: PCP Nurse Practitioner Family; Visit Provider Orthopaedic Surgery ==

== ENCOUNTER 2024-10-10 14:17 | Outpatient (AMB) | payer OTHER, SELFPAY ==
--- NOTE | 2024-10-10 14:19 | A.OFFVIS_ITS ---
Vital Signs 10/10/24 14:20 Height 5 ft 7 in Weight 147 lb BMI 23.0 Intake Visit Reasons: Right knee pain and giving way, Bilateral knee pain Intake Note: Rylan is a 54 year old male who presents with complaints of progressively worsening right knee pain and giving way. The patient did undergo left knee arthroscopic surgery on 09/17/2024. He reports minimal discomfort in his left knee. He describes his right knee pain as sharp in nature. He did injure his right knee several years ago. Since that time his symptoms have gotten progressively worse. He states that his right knee will give out several times per day. He has failed the last 6 weeks of conservative treatment which has included a home exercise program, physical therapy exercises, Tylenol and anti- inflammatory medicines. He has been walking with a crutch because of his right knee pain and mechanical symptom Allergies aspirin Allergy (Unknown, Verified 10/10/24 14:20) Unknown penicillin G Allergy (Unknown, Verified 10/10/24 14:20) Unknown Medication List - Last Reconciled 10/11/24 by Valerio Gifford MD albuterol sulfate 90 mcg/actuation (Ventolin HFA) 1 puff inhalation QID PRN famotidine 20 mg PO BEDTIME loratadine 10 mg PO DAILY meloxicam 15 mg PO DAILY PRN oxycodone 5 mg PO Q12H PRN ruxolitinib 1.5% (Opzelura) appl topical PFSH Medical History Seasonal allergies Surgical History [place] teeth extracted Social History Patient Tobacco Use Status: Never used Tobacco Current occupational status: employed 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 Physical Exam Vital Signs: BMI result Body Mass Index 23.0 Const Other: Well-nourished well-developed very friendly male awake alert and oriented x3 in no acute distress Extrem Other: Bilateral lower extremity examination shows good capillary refill, no skin lesions noted, normal sensation light touch Right knee examination shows a minimal effusion, mild crepitus with range of motion, tenderness along his medial joint line, positive Katharina's test, no instability Results Reviewed Results Reviewed: Standing full weight-bearing x-rays of the patient's right knee show mild diffuse joint space narrowing, no acute bony abnormalities MRI of the patient's right knee shows mild diffuse degenerative changes as well as a tear of the medial meniscus Assessment & Plan Assessment & Plan (1) Pain in both knees: Code(s): M25.561 - Pain in right knee; M25.562 - Pain in left knee (2) Tear of medial meniscus of right knee: Code(s): S83.241A - Other tear of medial meniscus, current injury, right knee, initial encounter Category: Medical Plan Mr. Rosario presents with progressively worsening right knee pain and mechanical symptoms due to a medial meniscus tear. I had a lengthy discussion with the patient regarding the treatment options. At this point he has failed continued non operative treatments. The risks and benefits of right knee arthroscopic surgery were discussed at length with the patient. The patient wishes to proceed with surgery. Surgery will most likely involve right knee arthroscopic partial medial meniscectomy. He will be given a prescription for pain medicine at the time of his surgery. He does understand that he may not get 100% relief of his symptoms depending on the severity of his degenerative changes. He will follow-up as instructed. Feel free to call me at any time should questions regarding his orthopedic management arise. I spent 22 minutes in reviewing the patient's records and imaging studies, seeing the patient and documenting in the medical record. Coding Level of Care Code Est Pt Level 3 (13918) Complex EM visit Add On G2211 Diagnoses Pain in both knees M25.561; M25.562 Tear of medial meniscus of right knee S83.241A
[2024-10-10 14:20] VITALS: BMI 23.0
--- OUTSIDE RECORDS SUMMARY | 2024-10-10 15:29 | XMS_ITS | Data Portability ---
Author Organization [facility] Morgan [facility] [address] Address [address] [place] [address] Assessment No assessment recorded. Plan of Treatment Reminders Order Date Submit Date Provider Last Modified By Organization Details Last Modified Time Details Appointments None recorded. Lab None recorded. Referral None recorded. Procedures None recorded. Surgeries None recorded. Imaging None recorded. Medication Orders meloxicam 15 mg tablet 2023 024 [facility]/Pharmacy #[id number], [phone] [place], [address], 19:28:13 Patient TargetsNo targets recorded. Patient Instructions Encounter Date Encounter Id Patient Instructions Last Modified By Organization Details Last Modified Time 04/28/2024 [id number] shoulder pain: care instructions Not available 04/28/2024 19:28:11 biceps tendinitis: exercises Not available 04/28/2024 19:28:11 Reason for Referral None Reported. Problems Name Problem SNOMED Code Status Onset Date Resolution Date Notes Provider Name and Address Organization Details Recorded Time Asthma 964349668 Active Carol sexton PA - [facility] 04/28/2024 19:18:34 Problem Notes None recorded. Medical Equipment None Reported. Allergies Allergen ID Allergen Name Allergen Category Reaction Reaction Severity Criticality Documentation Date Start Date Code Code System Note Provider Name and Address Organization Details Recorded Time 9276511 aspirin medicatio n Not available Not available Not available 04/28/2024 1191 RxNorm Carol sexton PA - [facility] 19:18:00 [id number] Product containin g penicilli n (product) medicatio n Not available Not available Not available 04/28/2024 73211 8001 SNOMED Carol sexton [facility] - [facility] [...] Last Updated DateTime 170.18 cm 22.4 kg/m2 50054.7 1 g 100 % 100 % 98 [...] SNOMED-CT Code Diagnosis ICD10 Code Diagnosis Note [id number] [address] [facility] [place] [address] 05/13/2016 11:20:44 05/13/2016 11:36:56 [id number] [address] [facility] [place] [address] 08/02/2020 13:25:56 08/02/2020 14:15:46 [id number] [address] [facility] [place] [address] 02/15/2021 08:30:13 02/15/2021 09:22:09 [id number] [facility] [address] [facility] [place] [place] [address] 04/28/2024 19:09:11 04/28/2024 19:28:53 Biceps tendinitis [id number] M75.22 You have been diagnosed with a [...] Recorded Advance Directives Directive None Recorded Payers Insurance Date Sequence Insurance Name Policy Number Policy Vega Covered Member ID Vega Member ID Guarantor Name 04/28/2024 1 [facility] [id number] Rylan Rosario [id number] Rylan Rosario 04/28/2024 1 [facility] [id number] Rylan Rosario [id number] Rylan Rosario Notes Date Note Type Note Provider Name and Address Organization Details Recorded Time 04/28/2024 text/html 54 y/o male here with L shoulder pain starting this morning. 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
--- OUTSIDE RECORDS SUMMARY | 2024-10-10 15:29 | XMS_ITS ---
Author Name [facility] Organization Unknown Encounters Encounter Type Encounter Reason Primary Diagnosis Location Date Ambulatory [facility], [facility]. ([facility]) 04/28/2024
--- OUTSIDE RECORDS SUMMARY | 2024-10-10 15:29 | XMS_ITS | Clinical Summary ---
Author Organization [facility] it Address [address] [place] [address] Care Team Providers Care Milk Condenser Name Role Phone Royer Snow MD Primary Care Provider [phone] Surgical History Surgery Date Site/Laterality Comments OTHER [...] age to complete this topic Care Teams Milk Condenser Relationship Specialty Start Date End Date Royer Snow MD [facility] [address], [address] [place], [place] PCP - General Internal Medicine 12/10/13
== END 2024-10-10 14:31 | disposition home or self-care (01) ==
LOC: HO.HOS 14:17
PROVIDERS: Visit Provider Orthopaedic Surgery
DX: S83.241A Other tear of medial meniscus, current injury, right knee, initial encounter (principal); M25.562 Pain in left knee
CPT/HCPCS: 99213; G2211

== ENCOUNTER → 2024-10-10 14:17 | Outpatient (BNVA) | payer OTHER, SELFPAY | PROVIDERS: Visit Provider Orthopaedic Surgery ==

== ENCOUNTER 2024-10-12 08:47 | Day surgery (SDC) | payer OTHER, SELFPAY ==
--- OUTSIDE RECORDS SUMMARY | 2024-10-03 09:57 | XMS_ITS | Clinical Summary ---
Author Organization [facility] it Address [address] [place] [address] Care Team Providers Care Industrial Paramedic Name Role Phone Royer Snow MD Primary Care Provider [phone] Surgical History Surgery Date Site/Laterality Comments OTHER [...] age to complete this topic Care Teams Industrial Paramedic Relationship Specialty Start Date End Date Royer Snow MD [facility] [address], [address] [place], [place] PCP - General Internal Medicine 12/10/13
--- OUTSIDE RECORDS SUMMARY | 2024-10-03 09:57 | XMS_ITS | Data Portability ---
Author Organization CATERINA Morgan s [address] Address [address] [place] [address] Assessment No assessment recorded. Plan of Treatment Reminders Order Date Submit Date Provider Last Modified By Organization Details Last Modified Time Details Appointments None recorded. Lab None recorded. Referral None recorded. Procedures None recorded. Surgeries None recorded. Imaging None recorded. Medication Orders meloxicam 15 mg tablet 2023 024 [facility]/Pharmacy #[id number], [phone] [place], [address], 19:28:13 Patient TargetsNo targets recorded. Patient Instructions Encounter Date Encounter Id Patient Instructions Last Modified By Organization Details Last Modified Time 04/28/2024 [id number] shoulder pain: care instructions Not available 04/28/2024 19:28:11 biceps tendinitis: exercises Not available 04/28/2024 19:28:11 Reason for Referral None Reported. Problems Name Problem SNOMED Code Status Onset Date Resolution Date Notes Provider Name and Address Organization Details Recorded Time Asthma 878971933 Active Carol sexton PA - [facility] 04/28/2024 19:18:34 Problem Notes None recorded. Medical Equipment None Reported. Allergies Allergen ID Allergen Name Allergen Category Reaction Reaction Severity Criticality Documentation Date Start Date Code Code System Note Provider Name and Address Organization Details Recorded Time 2451422 aspirin medicatio n Not available Not available Not available 04/28/2024 1191 RxNorm Carol sexton PA - [facility] 19:18:00 0801316 Product containin g penicilli n (product) medicatio n Not available Not available Not available 04/28/2024 21644 8001 SNOMED Carol sexton PA - [facility] [...] Last Updated DateTime 170.18 cm 22.4 kg/m2 73411.7 1 g 100 % 100 % 98 [...] SNOMED-CT Code Diagnosis ICD10 Code Diagnosis Note [id number] [address] [facility] [place] [address] 05/13/2016 11:20:44 05/13/2016 11:36:56 [id number] [address] [facility] [place] [address] 08/02/2020 13:25:56 08/02/2020 14:15:46 [id number] [address] [facility] [place] [address] 02/15/2021 08:30:13 02/15/2021 09:22:09 [id number] CATERINA Guy [address] [facility] [place] [address] 04/28/2024 19:09:11 04/28/2024 19:28:53 Biceps tendinitis [id number] M75.22 You have been diagnosed with a [...] from the muscle. Thank you for using [facility] , please call if you have any [...] 08/02/2020 1 [facility] [id number] Rylan Rosario [id number] Rylan Rosario 04/28/2024 1 [facility] [id number] Rylan Rosario [id number] Rylan Rosario Notes Date Note Type Note Provider Name and Address Organization Details Recorded Time 04/28/2024 text/html 54 y/o male here with L shoulder pain starting this morning. 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
[2024-10-10 08:16] VITALS: BMI 23.1
[2024-10-12] VITALS (7 sets, daily range): BP systolic 98–126; BP diastolic 58–82; PULSE 64–75; RESP 12–18; TEMP 36.1–36.7; O2SAT 96–100; BMI 22.8
[2024-10-12] MEDS: Lactated Ringers 1,000 ML 100 ML IVCONT (09:11)
--- NOTE | 2024-10-12 09:44 | P.CONAN_ITS ---
Documented by User: Savanna Cooley NP 10/11/24 09:30 HPI - Anesthesia Eval Consult details Narrative: 54yo M for Right Knee Arthroscopy,with partial medial meniscectomy PMFSH Active Problems Active Problems: All Active Problems Right knee pain (Acute) Tear of medial meniscus of right knee (Acute) Right shoulder pain (Acute) Tear of medial meniscus of left knee (Acute) Left knee pain (Acute) Past Medical History Medical History (Updated 10/12/24 @ 09:21 by Mallory Lincoln RN) GERD (gastroesophageal reflux disease) Seasonal allergies Family History Family history of problems with anesthesia: No Surgical History Surgical History (Updated 10/12/24 @ 09:02 by Mallory Lincoln RN) Hx of arthroscopy of left knee [place] teeth extracted History of Problems with Anesthesia: No Social History Social History Household Members Other:: granddaughter Are you a primary lawn care worker to a significant other at home: No Do you presently have visiting nurse or other home services: No Patient Tobacco Use Status: Never used Tobacco Substance Use Frequency: Occasionally Have you been hit, kicked, punched, or otherwise hurt by someone within the past year? 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 [employer] Allergies Allergy/AdvReac Type Severity Reaction Status Date / Time aspirin Allergy Unknown Unknown Verified 10/12/24 09:02 penicillin G Allergy Unknown Unknown Verified 10/12/24 09:02 Active Medications: Current Medications Clindamycin Phosphate (Cleocin) 900 mg in 50 mls @ 50 mls/hr IV PREOP ONE Stop: 10/12/24 06:22 Home Medications ?Medication ?Instructions ?Recorded ?Confirmed ?Last Taken ?Type ruxolitinib 1.5 % topical cream appl topical 06/26/24 10/11/24 09/10/24 History (Opzelura) albuterol sulfate 90 mcg/actuation 1 puff inhalation QID PRN wheezing 09/17/24 10/12/24 09/10/24 History aerosol inhaler (Ventolin HFA) famotidine 20 mg tablet 20 mg PO BEDTIME 09/17/24 10/12/24 09/16/24 History loratadine 10 mg tablet 10 mg PO DAILY 09/17/24 10/12/24 10/12/24 History Exam Height,Weight and Vital Signs: Height 5 ft 7 in Weight 66.8 kg Assessment and Plan Assessment Anesthesia Assessment: Chart Reviewed Final Anesthetic Review Family History of Problems with Anesthesia: No History of Problems with Anesthesia: No Documented by User: Yulisa Aguilar, DO 10/12/24 09:45 [facility] Past Medical History Medical History (Updated 10/12/24 @ 09:21 by Mallory Lincoln RN) GERD (gastroesophageal reflux disease) Seasonal allergies Family History Family history of problems with anesthesia: No Surgical History Surgical History (Updated 10/12/24 @ 09:02 by Mallory Lincoln RN) Hx of arthroscopy of left knee [place] teeth extracted History of Problems with Anesthesia: No Social History Social History Household Members Other:: granddaughter Are you a primary lawn care worker to a significant other at home: No Do you presently have visiting nurse or other home services: No Patient Tobacco Use Status: Never used Tobacco Substance Use Frequency: Occasionally Have you been hit, kicked, punched, or otherwise hurt by someone within the past year? If so, by whom?: No Are you DNR?: No Advance Directives: No Advance Directives Information Provided: Yes Poor oral hygiene: No Current occupational status: employed Current occupation: [employer] Allergies Allergy/AdvReac Type Severity Reaction Status Date / Time aspirin Allergy Unknown Unknown Verified 10/12/24 09:02 penicillin G Allergy Unknown Unknown Verified 10/12/24 09:02 Home Medications ?Medication ?Instructions ?Recorded ?Confirmed ?Last Taken ?Type ruxolitinib 1.5 % topical cream appl topical 06/26/24 10/11/24 09/10/24 History (Opzelura) albuterol sulfate 90 mcg/actuation 1 puff inhalation QID PRN wheezing 09/17/24 10/12/24 09/10/24 History aerosol inhaler (Ventolin HFA) famotidine 20 mg tablet 20 mg PO BEDTIME 09/17/24 10/12/24 09/16/24 History loratadine 10 mg tablet 10 mg PO DAILY 09/17/24 10/12/24 10/12/24 History Exam Exam Date and Time: 10/12/24 0944 Height,Weight and Vital Signs: Height 5 ft 7 in Weight 66.8 kg Vital Signs Temperature 98.1 F 10/12/24 09:18 Pulse Rate 70 10/12/24 09:18 Respiratory Rate 18 10/12/24 09:18 Blood Pressure 123/74 10/12/24 09:18 Pulse Oximetry 99 10/12/24 09:18 Oxygen Delivery Method Room Air 10/12/24 09:18 Temperature 98.1 F 10/12/24 09:18 Pulse Rate 70 10/12/24 09:18 Respiratory Rate 18 10/12/24 09:18 Blood Pressure 123/74 10/12/24 09:18 Pulse Oximetry 99 10/12/24 09:18 Oxygen Delivery Method Room Air 10/12/24 09:18 Airway Mallampati Class: II TM Dist: >3cm Neck ROM: Full Loose/Missing/Broken Teeth: No (patient denies any loose or broken teeth) Heart: S1S2 Lungs: CTAB Assessment and Plan Assessment Anesthesia Assessment: Anesthesia Plan Discussed and Chart Reviewed Final Anesthetic Review Family History of Problems with Anesthesia: No History of Problems with Anesthesia: No NPO: Yes ASA Class: II Final Preanesthetic Review: No Changes in Pt Med Stat, Meds/Allgs Chart Reviewed, Consent Obtained/Reviewed and Anes Risks/Benef Reviewed Patient Risk: Low Procedure Risk: Low Anesthetic Plan Anesthetic Plan: GA and Agree w/ Assess. and Plan Disposition: Standard PACU
[2024-10-12] MEDS: Acetaminophen 1,000 MG/100 ML PIGGYBACK 400 MG IV (10:30)
[2024-10-12] MEDS: Clindamycin Phosphate/D5W 900 MG/50 ML PIGGYBACK 50 MG IV (10:30)
--- NOTE | 2024-10-12 11:28 | P.BOP_ITS ---
Brief Operative Note Date of Service: 10/12/24 Pre-op diagnosis: Right knee medial meniscus tear, right knee degenerative joint disease Post-op diagnosis: same Procedure: Right knee arthroscopic partial medial meniscectomy, right knee arthroscopic chondroplasty of the undersurface of the patella as well as the medial femoral condyle Implants: none Surgeon: Valerio Gifford MD Anesthesia: GLMA Was an Chip Bin Conveyor Tender used for this Procedure?: No Estimated blood loss (mL): 10 Pathology: none sent Condition: stable Disposition: PACU
--- NOTE | 2024-10-12 11:29 | W.PM.OPN ---
Operative Note Operative Note Date of Service: 10/12/24 Narrative: After the patient was identified as Rylan Rosario and his right knee was initialed by myself they were brought to the operating room where general anesthesia was induced by the anesthesiologist in routine fashion. Because of the patient's allergy to penicillins he was given 900 mg of IV clindamycin for infection prophylaxis. A formal time-out was completed. The patient's right lower extremity was prepped and draped in sterile fashion. Marcaine with epinephrine was injected into the planned incision sites as well as their right knee joint. A # 11 scalpel blade was used to make an anterolateral portal 1 cm proximal to the joint line and 1 cm lateral to the patellar tendon. Blunt trocar technique was used into the suprapatellar pouch with the knee in extension. Diagnostic arthroscopy showed multiple bands of thickened plica which would be excised at the end of the procedure. There were no loose bodies or abnormalities found in either the medial or lateral gutters. There were diffuse grades 1 and 2 degenerative changes of the undersurface of the patella as well as grade 1 degenerative changes of the trochlear groove. The patient's knee was flexed to 45 degrees and a valgus force was placed upon it. The medial compartment was entered. An anteromedial portal was made 1 cm proximal to the joint line and 1 cm medial to the patellar tendon. Probing of the medial meniscus showed a radial tear of the posterior horn. A partial medial meniscectomy was performed using the arthroscopic shaver. Following the partial meniscectomy the remainder of the meniscus tissue was stable. There were diffuse grades 2 and 3 degenerative changes of the medial femoral condyle as well as diffuse grade 1 degenerative changes of the medial tibial plateau. The articular surface of the medial femoral condyle was made smooth using the arthroscopic shaver. The articular surface of the medial tibial plateau was already smooth so no chondroplasty was indicated. The patient's knee was then placed into a neutral position. There was no injury to the anterior cruciate ligament. The patient's knee was then placed into the figure of 4 position and the lateral compartment was entered. There were minimal degenerative changes of the lateral femoral condyle and lateral tibial plateau. There was no evidence of lateral meniscus tearing. The patient's knee was once again brought into extension and the suprapatellar pouch was entered. The arthroscopic shaver and the ArthroCare Wand were used to excise the thickened bands of plica. The undersurface of the patella was then made smooth using the arthroscopic shaver. The articular surface of the trochlear groove was already smooth so no chondroplasty was indicated. The knee joint was irrigated and then drained. All arthroscopic instruments were removed. The 2 portals were closed with 3-0 nylon interrupted suture. The knee joint was injected with Marcaine. Dry sterile dressing and Claude bandages were placed over the patient's knee. The patient was awoken and extubated in the operating room. They were transferred to the recovery room in stable condition.
== END 2024-10-12 12:50 | disposition home or self-care (01) ==
PROVIDERS: PCP Nurse Practitioner Family; Visit Provider Orthopaedic Surgery
PROC: (CPT 29870; principal; 2024-10-12 10:30)
DX: S83.241A Other tear of medial meniscus, current injury, right knee, initial encounter (principal); M17.11 Unilateral primary osteoarthritis, right knee; M25.561 Pain in right knee; M23.51 Chronic instability of knee, right knee; M67.51 Plica syndrome, right knee; J30.2 Other seasonal allergic rhinitis; Z87.828 Personal history of other (healed) physical injury and trauma; Z99.89 Dependence on other enabling machines and devices; Z79.899 Other long term (current) drug therapy; Z88.0 Allergy status to penicillin; Z88.6 Allergy status to analgesic agent; Z98.890 Other specified postprocedural states
CPT/HCPCS: 29881; J0131; J0171; J0736; J1100; J2003; J2250; J2405; J2704; J2795; J3010

== ENCOUNTER → 2024-10-12 08:47 | Outpatient (BNV) | payer OTHER, SELFPAY | PROVIDERS: PCP Nurse Practitioner Family; Visit Provider Orthopaedic Surgery | DX: S83.241A Other tear of medial meniscus, current injury, right knee, initial encounter (principal) | CPT/HCPCS: 29881 ==

== ENCOUNTER 2024-10-25 09:46 | Outpatient (AMB) | payer OTHER, SELFPAY ==
--- NOTE | 2024-10-25 09:48 | MHC.OFFVIS ---
Intake Visit Reasons: PO-Rt Knee 10/12/24 Intake Note: Rylan is a 54 year old male who presents today postoperatively right knee on 10/12/[address] Gifford. Patient reports - Allergies aspirin Allergy (Unknown, Verified 10/25/24 09:50) Unknown penicillin G Allergy (Unknown, Verified 10/25/24 09:50) Unknown HPI HPI PO-Rt Knee 10/12/24 DR: Details: 54-year-old gentleman presents to the office today for a follow-up right knee arthroscopy on 10/12/[address] Gifford. He c/o discomfort with activity such as stairs. States he feels his knee is going to give out. Also c/o discomfort in the left knee s/p lt knee as 09/17/24. He has not attended PT. 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 No erythema or swelling. ROM 0-95. Calf supple, non tender. Results Reviewed Results Reviewed: Brief Operative Note Date of Service: 10/12/24 Pre-op diagnosis: Right knee medial meniscus tear, right knee degenerative joint disease Post-op diagnosis: same Procedure: Right knee arthroscopic partial medial meniscectomy, right knee arthroscopic chondroplasty of the undersurface of the patella as well as the medial femoral condyle Implants: none Surgeon: Valerio Gifford MD Assessment & Plan Assessment & Plan (1) Tear of medial meniscus of right knee: Code(s): S83.241A - Other tear of medial meniscus, current injury, right knee, initial encounter Category: Medical Plan: Sutures removed today Steri-Strips applied. He will begin a course of physical therapy to work on range of motion quad strength and conditioning exercises. This should also include the left knee. He should avoid activities that irritate the knee such as deep bending kneeling squatting twisting and pivoting. He will remain out of work until his follow up in [address] Gifford, sooner if needed. Orders: Orders PT Evaluation and Treatment Today S83.241A - Other tear of medial meniscus, current injury, right knee, initial encounter, S83.242A - Other tear of medial meniscus, current injury, left knee, initial encounter Coding Level of Care Code Global (40161) Diagnoses Tear of medial meniscus of right knee S83.241A
--- OUTSIDE RECORDS SUMMARY | 2024-10-25 10:05 | XMS_ITS | Clinical Summary ---
Author Organization [facility] it Address [address] [place] [address] Care Team Providers Care Receptionist Scheduler Name Role Phone Royer Snow MD Primary Care Provider [phone] Surgical History Surgery Date Site/Laterality Comments OTHER [...] age to complete this topic Care Teams Receptionist Scheduler Relationship Specialty Start Date End Date Royer Snow MD [facility] [address], [address] [place], [place] PCP - General Internal Medicine 12/10/13
--- OUTSIDE RECORDS SUMMARY | 2024-10-25 10:06 | XMS_ITS | Data Portability ---
Author Organization CATERINA Morgan [address] Address [address] [place] [address] Assessment No assessment recorded. Plan of Treatment Reminders Order Date Submit Date Provider Last Modified By Organization Details Last Modified Time Details Appointments None recorded. Lab None recorded. Referral None recorded. Procedures None recorded. Surgeries None recorded. Imaging None recorded. Medication Orders meloxicam 15 mg tablet 2023 024 [facility] #[id number], [phone] [place], [address], 19:28:13 Patient TargetsNo targets recorded. Patient Instructions Encounter Date Encounter Id Patient Instructions Last Modified By Organization Details Last Modified Time 04/28/2024 [id number] shoulder pain: care instructions Not available 04/28/2024 19:28:11 biceps tendinitis: exercises Not available 04/28/2024 19:28:11 Reason for Referral None Reported. Problems Name Problem SNOMED Code Status Onset Date Resolution Date Notes Provider Name and Address Organization Details Recorded Time Asthma 715817352 Active Carol sexton PA - [facility] 04/28/2024 19:18:34 Problem Notes None recorded. Medical Equipment None Reported. Allergies Allergen ID Allergen Name Allergen Category Reaction Reaction Severity Criticality Documentation Date Start Date Code Code System Note Provider Name and Address Organization Details Recorded Time 5735126 aspirin medicatio n Not available Not available Not available 04/28/2024 1191 RxNorm Carol sexton PA - [facility] 19:18:00 0188298 Product containin g penicilli n (product) medicatio n Not available Not available Not available 04/28/2024 81538 8001 SNOMED [facility]xton [facility] - [facility] [...] Last Updated DateTime 170.18 cm 22.4 kg/m2 06775.7 1 g 100 % 100 % 98 /min 20 /min 97.8 [degF] 110 mm[Hg] 70 mm[Hg] Carol Ruvalcaba PA - [facility] 19:26:08 Social History Question Answer Notes LastModified by [employer] Details LastModified Time Tobacco Smoking Status Never Smoker Carol sexton PA - [facility] 04/28/2024 19:19:03 Have You Had A Flu Shot This Season? No Information not available 04/28/2024 If No, Would You Like A Flu Shot Today? No Information not available 04/28/2024 What Is Your Water Source? Other Information not available 04/28/2024 What Is Your Heat Source? Other Information not available 04/28/2024 Are You Passively Exposed To Smoke? No Information not available 04/28/2024 Have You Recently Traveled Abroad? No Information not available 04/28/2024 Sex: Unknown Functional Status Question Answer Note LastModified by [email or web address] Details LastModified Time Do you use any illicit or recreational drugs? No Information not available 04/28/2024 Do you or have you ever used any other forms of tobacco or nicotine? No Information not available 04/28/2024 What is your level of alcohol consumption? None Information not available 04/28/2024 Are you currently employed? Yes Information not available 04/28/2024 Mental Status None recorded. Family History Relationship [...] SNOMED-CT Code Diagnosis ICD10 Code Diagnosis Note [id number] [address] [place] [address] 05/13/2016 11:20:44 05/13/2016 11:36:56 [id number] [address] [place] [address] 08/02/2020 13:25:56 08/02/2020 14:15:46 [id number] [address] [place] [address] 02/15/2021 08:30:13 02/15/2021 09:22:09 [id number] CATERINA Guy [address] [place] [address] 04/28/2024 19:09:11 04/28/2024 19:28:53 Biceps tendinitis [id number] M75.22 You have been diagnosed with a [...] Concerns Section Related Observation LastModified by Organization Obdulio ls LastModified Time None Recorded Concern Status LastModified by Organization Details LastModified Time None Recorded Advance Directives Directive None Recorded Payers Insurance Date Sequence Insurance Name Policy Number Policy Vega Covered Member ID Vega Member ID Guarantor Name 04/28/2024 1 [facility] [id number] Rylan Rosario [id number] Rylan Rosario 04/28/2024 1 [facility] [id number] Rylan Rosario [id number] Rylan Rosario Notes Date Note Type Note Provider Name and Address Organization Details Recorded Time 04/28/2024 text/html 54 y/o male here with L shoulder pain starting this morning. 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
== END 2024-10-25 10:21 | disposition home or self-care (01) ==
LOC: HO.HOS 09:46
PROVIDERS: PCP Nurse Practitioner Family; Visit Provider Physician Assistant
DX: S83.241A Other tear of medial meniscus, current injury, right knee, initial encounter (principal)
CPT/HCPCS: 99024

== ENCOUNTER → 2024-10-25 09:46 | Outpatient (BNVA) | payer OTHER, SELFPAY | PROVIDERS: PCP Nurse Practitioner Family; Visit Provider Physician Assistant ==

== ENCOUNTER 2024-11-27 09:16 | Outpatient (AMB) | payer OTHER, SELFPAY ==
--- NOTE | 2024-11-27 09:19 | MHC.OFFVIS ---
Vital Signs 11/27/24 09:24 Height 5 ft 7 in Weight 145 lb BMI 22.7 Intake Visit Reasons: PO-Rt Knee 10/12/24 Intake Note: Rylan is a 54 year old male who presents today post-operatively after undergoing a right knee arthroscopy on 10/12/24. He also underwent left knee arthroscopic surgery on 09/17/2024. He has been going to formal physical therapy. He has not yet returned to work because of continued discomfort and he states that his left knee will give out at times. He denies any fevers or chills. Allergies aspirin Allergy (Unknown, Verified 11/27/24 09:23) Unknown penicillin G Allergy (Unknown, Verified 11/27/24 09:23) Unknown Medication List - Last Reconciled 11/27/24 by Valerio Gifford MD albuterol sulfate 90 mcg/actuation (Ventolin HFA) 1 puff inhalation QID PRN famotidine 20 mg PO BEDTIME loratadine 10 mg PO DAILY meloxicam 15 mg PO DAILY PRN oxycodone 5 mg PO Q24H PRN ruxolitinib 1.5% (Opzelura) appl topical PFSH Medical History GERD (gastroesophageal reflux disease) Seasonal allergies Surgical History Hx of arthroscopy of left knee [place] teeth extracted Social History Household Members Other:: granddaughter Are you a primary resident care provider to a significant other at home: No Do you presently have visiting nurse or other home services: No Patient Tobacco Use Status: Never used Tobacco Current occupational status: employed 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 Rosario continues to do fairly well after undergoing bilateral knee arthroscopic surgeries. He does have continued discomfort as well as intermittent symptoms of instability in his left knee. Thus, I had the patient fitted for a left knee brace. I do feel that the braces a medical necessity to help prevent future falls. The patient will continue going to formal physical therapy. I will clear him to return to work once his discomfort and strength have improved. Feel free to call me at any time should questions regarding his orthopedic management arise. I spent 20 minutes in reviewing the patient's records and imaging studies, seeing the patient and documenting in the medical record. Coding Level of Care Code Global (80579) Diagnoses Right knee pain M25.561 Left knee pain M25.562
[2024-11-27 09:24] VITALS: BMI 22.7
== END 2024-11-27 09:42 | disposition home or self-care (01) ==
LOC: HO.HOS 09:16
PROVIDERS: PCP Nurse Practitioner Family; Visit Provider Orthopaedic Surgery
DX: M25.561 Pain in right knee (principal); M25.562 Pain in left knee
CPT/HCPCS: 99024

== ENCOUNTER 2024-12-31 17:05 | Outpatient (RCR) | payer OTHER, SELFPAY ==
--- NOTE | 2024-11-12 13:14 | MHC.PT.EP ---
[facility] [place] [facility] [place] [facility] [place] Office [address] Rojelio Salas 140 [facility] [phone] F: [phone] F: [phone] F: [phone] F: [phone] Physical Therapy Plan of Care Date of Evaluation: 11/12/24 Date of Surgery: 09/17/24, 10/12/24 Diagnosis: Pre-op diagnosis: LEFT knee medial meniscus tear, LEFT knee degenerative joint disease (09/17/24), RIGHT knee medial meniscus tear, RIGHT knee degenerative joint disease (10/12/24) Post-op diagnosis: LEFT knee arthroscopic partial medial meniscectomy, LEFT knee arthroscopic chondroplasty of the undersurface of the patella, medial femoral condyle and trochlear groove, RIGHT knee arthroscopic partial medial meniscectomy, RIGHT knee arthroscopic chondroplasty of the undersurface of the patella as well as the medial femoral condyle (RS) Assessment: Rylan is a 54 y.o. male who is referred to PT by Justen Escudero PA-C, surgery performed by Dr. Ирина MD, after sugery of both knees. Pre-op diagnosis: LEFT knee medial meniscus tear, LEFT knee degenerative joint disease, RIGHT knee medial meniscus tear, RIGHT knee degenerative joint disease. Post-op diagnosis: LEFT knee arthroscopic partial medial meniscectomy, LEFT knee arthroscopic chondroplasty of the undersurface of the patella, medial femoral condyle and trochlear groove (09/17/24), RIGHT knee arthroscopic partial medial meniscectomy, RIGHT knee arthroscopic chondroplasty of the undersurface of the patella as well as the medial femoral condyle (10/12/24). Patient impairments include pain, swelling, antalgic gait, limited ROM, weakness in bilateral knees. 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 Patient will benefit from skilled PT to address aforementioned impairments and functional limitations to meet established goals. Frequency and Duration: The patient will be seen 2x/week for 6 weeks Short Term Goals: 3 weeks Patient demonstrates consistency and independence with HEP to self manage symptoms. Patient presents with reduced swelling/edema with midpatellar measurement 37cm bilateral knees. 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 Patient presents with increased bilateral quad strength 4/5 to be able to ascend/descend 3 flights of stairs. Treatment Plan: Modalities to reduce pain, spasms and effusion. Manual therapy to restore motion and function. Therapeutic exercise to improve strength and flexibility. Neuromuscular re-education for posture and balance. Therapeutic activities to return to functional activities of daily living. Electronically signed by: Tali Lebron PT, DPT Please sign and return to therapist. Thank you for your referral.
--- NOTE | 2025-02-22 09:58 | MHC.PT.DC ---
[facility] [place] [facility] Office [place] Office [place] Office [address] Rojelio Salas 140 [facility] [phone] F: [phone] F: [phone] F: [phone] F: [phone] Physical Therapy Discharge Report Diagnosis: Pre-op diagnosis: LEFT knee medial meniscus tear, LEFT knee degenerative joint disease (09/17/24), RIGHT knee medial meniscus tear, RIGHT knee degenerative joint disease (10/12/24) Post-op diagnosis: LEFT knee arthroscopic partial medial meniscectomy, LEFT knee arthroscopic chondroplasty of the undersurface of the patella, medial femoral condyle and trochlear groove, RIGHT knee arthroscopic partial medial meniscectomy, RIGHT knee arthroscopic chondroplasty of the undersurface of the patella as well as the medial femoral condyle (RS) Date of Surgery: 09/17/24, 10/12/24 Date of Evaluation: 11/12/24 Date of Discharge: 02/22/25 Treatments to Date: 10 Cancellations to Date: 3 No Shows to Date: 7 Discharge Status: Independent with HEP Visit Non-compliance Discharge Summary: Rylan Rosario was last seen in PT on 12/31/24. He showed some progress with ROM and continued with focus on strengthening, endurance and incorporating more balance activities. He was still ambulating with one crutch due to c/o instability in L knee. He did not show to his last few sessions and is therefore discharged from PT for non compliance with attendance. Recommend FUP with ortho MD. Electronically signed by: Tali Lebron, PT, DPT Please sign and return to therapist. Thank you for your referral.
== END 2025-02-22 09:59 | disposition home or self-care (01) ==
LOC: HO.PT 17:05
PROVIDERS: PCP Nurse Practitioner Family; Visit Provider Physician Assistant
DX: S83.241D Other tear of medial meniscus, current injury, right knee, subsequent encounter (principal); S83.242D Other tear of medial meniscus, current injury, left knee, subsequent encounter; Z98.890 Other specified postprocedural states
CPT/HCPCS: 97110; 97112; 97116; 97140; 97161; 97530; 97535

== ENCOUNTER 2025-03-07 15:24 | Outpatient (AMB) | payer BC, SELFPAY ==
--- NOTE | 2025-03-07 15:27 | A.OFFVIS_ITS ---
Intake Visit Reasons: Left knee pain Intake Note: Rylan is a 55 year old man who presents with complaints of left knee pain. The patient also has intermittent discomfort in his right knee. He states that his right knee discomfort is tolerable to him at this time. He describes his left knee pain as achy in nature. He has had cortisone injections in the past which gave him minimal relief. He has failed the last 3 months of conservative treatment which has included Tylenol, meloxicam, physical therapy exercises and a home exercise program. He has tried wearing a knee brace which gives him minimal relief. He wishes to hold off on further surgery if at all possible. Allergies aspirin Allergy (Unknown, Verified 03/07/25 15:27) Unknown penicillin G Allergy (Unknown, Verified 03/07/25 15:27) Unknown Medication List - Last Reconciled 03/07/25 by Valerio Gifford MD albuterol sulfate 90 mcg/actuation (Ventolin HFA) 1 puff inhalation QID PRN famotidine 20 mg PO BEDTIME loratadine 10 mg PO DAILY meloxicam 15 mg PO DAILY PRN oxycodone 5 mg PO Q24H PRN ruxolitinib 1.5% (Opzelura) appl topical PFSH Medical History GERD (gastroesophageal reflux disease) Seasonal allergies Surgical History Hx of arthroscopy of left knee [place] teeth extracted Social History Household Members Other:: granddaughter Are you a primary home visit field care manager to a significant other at home: No Do you presently have visiting nurse or other home services: No Patient Tobacco Use Status: Never used Tobacco Current occupational status: employed 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 Physical Exam Const Other: Well-nourished well-developed very friendly male awake alert and oriented x3 in no acute distress Extrem Other: Bilateral lower extremity examination shows good capillary refill, no skin lesions noted, normal sensation light touch Left knee examination shows a minimal effusion, mild crepitus with range of motion, pain with range of motion, no instability Results Reviewed Results Reviewed: X-rays of the patient's left knee taken previously show joint space narrowing, subchondral sclerosis, no acute bony abnormalities Assessment & Plan Assessment & Plan (1) Left knee pain: Code(s): M25.562 - Pain in left knee Category: Medical (2) Osteoarthritis of left knee: Code(s): M17.12 - Unilateral primary osteoarthritis, left knee Category: Medical Plan Mr. Rosario presents with left knee pain due to osteoarthritis. I had a lengthy discussion with the patient regarding the treatment options. He wishes to hold off on further surgery if at all possible. I agree with this plan. I will see if the patient's insurance company will cover a viscosupplementation injection, such as Durolane, for his left knee. I will see him back once the injection is available. Feel free to call me at any time should questions regarding his orthopedic management arise. I spent 20 minutes in reviewing the patient's records and imaging studies, seeing the patient and documenting in the medical record. Coding Level of Care Code Est Pt Level 3 (51410) Complex EM visit Add On G2211 Diagnoses Left knee pain M25.562 Osteoarthritis of left knee M17.12
--- OUTSIDE RECORDS SUMMARY | 2025-03-07 16:40 | XMS_ITS | Clinical Summary ---
Author Organization [facility] it Address [address] [place] [address] Care Team Providers Care Screw Remover Name Role Phone Royer Snow MD Primary Care Provider [phone] Surgical History Surgery Date Site/Laterality Comments OTHER [...] Health Maintenance Due Date Last Done Comments Colorectal Cancer Screening: Colonoscopy 1968 Pneumococcal Vaccine: 50+ Years (1 of 2 - PCV) 01/07/1987 Zoster Vaccines (1 of 2) 01/07/2018 Cholesterol Screening (Lipid Panel) 05/04/2022 HIV Screening 05/04/2022 Hepatitis C Screening 05/04/2022 Social Influencers of Health Screening 05/04/2022 DTaP,Tdap,and Td Vaccines (3 - Td or Tdap) 02/23/2023 02/23/2013, 08/06/2004 Depression Screening 06/06/2024 COVID-19 Vaccine (3 - 2024-2 6 season) 2025 10/30/2020, 10/09/2020 Influenza Vaccine (#1) 2025 04/23/2010 RSV Immunization Adult Patients (1 - 1-dose 75+ series) 01/07/2043 Hepatitis A Vaccines Aged Out 10/04/2008 No [...] age to complete this topic Care Teams Screw Remover Relationship Specialty Start Date End Date Royer Snow MD [address] [place] [address], [address] [place], [place] PCP - General Internal Medicine 12/10/13
--- OUTSIDE RECORDS SUMMARY | 2025-03-07 16:40 | XMS_ITS ---
Author Name [facility] Organization Unknown Encounters Encounter Type Encounter Reason Primary Diagnosis Location Date Ambulatory [facility] ([facility] 04/28/2024
== END 2025-03-07 15:46 | disposition home or self-care (01) ==
LOC: HO.HOS 15:24
PROVIDERS: PCP Nurse Practitioner Family; Visit Provider Orthopaedic Surgery
DX: M25.562 Pain in left knee (principal); M17.12 Unilateral primary osteoarthritis, left knee
CPT/HCPCS: 99213

== ENCOUNTER 2025-05-07 09:34 | Outpatient (AMB) | payer BC, SELFPAY ==
--- OUTSIDE RECORDS SUMMARY | 2025-05-01 23:59 | XMS_ITS | Continuity of Care Document ---
Author Organization [facility]astic Carolyn uzma Address [address] [place] [address] [address] [place] [address]- Care Team Providers Care Piercer Operator Name Role Phone Kevin MINAYA, Savanna Primary Care Physician Encounter [facility] [place] Date(s): 04/01/25 - 05/01/25 [facility] Surgery [address] [place] [id number]- Attending Physician: Admtr, Ar8 Admitting Physician: Admtr, Ar8 Referring Physician: Admtr, Ar8 Encounter Type: Triage Allergies, Adverse Reactions, Alerts Substance Criticality Severity Reaction Reaction Severity Status penicillin unknown - told by mother to not take it H/O: penicillin allergy Active aspirin unknown - told by mother to not take it Active Immunizations Given and Recorded Vaccine Date Status Refusal Reason SARS-CoV-2 (COVID-19) mRNA BNT-162b2 vac 10/30/20 Recorded SARS-CoV-2 (COVID-19) mRNA BNT-162b2 vac 10/09/20 Recorded tetanus/diphtheria/pertussis, acel(Tdap) 10/05/18 Given tetanus/diphtheria/pertussis, acel(Tdap) 02/23/13 Recorded influenza virus vaccine, inactivated 04/23/10 Jer rded hepatitis B adult vaccine 04/04/09 Recorded hepatitis B adult vaccine 11/08/08 Recorded hepatitis B adult vaccine 10/04/08 Recorded Hepatitis A Adult Vaccine 10/04/08 Recorded tetanus-diphtheria toxoids (Td) 08/06/04 Recorded Medications Albuterol (Eqv-Proventil HFA) 90 mcg/inh inhalation aerosol 6 Gm, 0 Refill(s), TAKE 2 PUFFS EVERY 4 TO 6 HOURS FOR SHORTNESS OF BREATH OR WHEEZING, 0 Refills, 04/01/25 3:03:00 PM EDT, Partial fill upon patient request if the prescription is for a schedule II opioid drug. Start Date: 04/01/25 Status: Ordered Medication Dispense Status: Completed Total Allowed Fills: 1 Fills Dispensed: 0 ammonium lactate 5% topical lotion Topically, 2 times a day, 0 Refills, Maintenance, 05/02/23 1:17:00 PM EST, Partial fill upon patient request if the prescription is for a schedule II opioid drug. Start Date: 05/02/23 Status: Ordered Medication Dispense Status: Completed Total Allowed Fills: 1 Fills Dispensed: 0 azithromycin 250 mg oral tablet 0 Refills, Maintenance, 06/26/24 10:38:00 AM EST, Partial fill upon patient request if the prescription is for a schedule II opioid drug. Start Date: 06/26/24 Status: Ordered Medication Dispense Status: Completed Total Allowed Fills: 1 Fills Dispensed: 0 benzonatate 100 mg oral capsule See Instructions, 1-2 capsule By Mouth 3 times a day 14 days, prn for cough do not crush or chew, #42 capsule, 0 Refills, Maintenance, 06/26/24 10:57:00 AM EST, Capsule, [id number], Partial fill upon patient request if the prescription is for a schedule II opioid drug., 169.4, cm, 06/26/24 10:39:00 EST, Height Start Date: 06/26/24 Status: Ordered Medication Dispense Status: Completed Quantity: 42.0 Unit: capsule Total Allowed Fills: 1 Fills Dispensed: 0 clobetasol 0.05% topical ointment See Instructions, 1 application Topically 2 times a day apply a thin film to corners of mouth, # 30Gm, 0 Refills, Maintenance, 12/02/22 10:22:00 AM EDT, Ointment, [id number], Partial fill upon patient request if the prescription is for a schedule II opioid drug., 1 application Topically 2 times a day apply a thin film to corners of mouth, 169.4, cm, 11/29/22 10:38:00 EDT, Height Start Date: 12/02/22 Status: Ordered Medication Dispense Status: Completed Quantity: 30.0 Unit: g Total Allowed Fills: 1 Fills Dispensed: 0 famotidine 20 mg oral tablet 180 each, 0 Refill(s), TAKE 1 TABLET BY MOUTH TWICE A DAY, Refills 0, 04/01/25 3:03:00 PM EDT, Partial fill upon patient request if the prescription is for a schedule II opioid drug. Start Date: 04/01/25 Status: Ordered Medication Dispense Status: Completed Total Allowed Fills: 1 Fills Dispensed: 0 fluocinonide 0.05% topical ointment 1 application, Topically, 3 times a day, # 60 Gm, 0 Refills, Maintenance, 02/03/23 4:50:00 PM EDT, Ointment, [id number], Partial fill upon patient request if the prescription is for a scheduleII opioid drug., 1 application Topically 3 times a day, 169.4, cm, 02/03/23 8:29:00 EDT, Height Start Date: 02/03/23 Status: Ordered Medication Dispense Status: Completed Quantity: 60.0 Unit: g Total Allowed Fills: 1 Fills Dispensed: 0 loratadine 10 mg oral tablet 1, tablet, By Mouth, Daily, # 90 tablet, Refills 3, Maintenance, 08/17/23 8:39:00 AM EDT, Route to Pharmacy Electronically, [id number], 169.4, cm, 07/08/23 10:13:00 EST, Height Start Date: 08/17/23 Status: Ordered Medication Dispense Status: Completed Quantity: 90.0 Unit: tablet Total Allowed Fills: 1 Fills Dispensed: 0 omeprazole 20 mg oral enteric coated capsule 1 capsule, By Mouth, Daily, # 90 capsule, 1 Refills, Maintenance, 06/04/24 1:50:00 PM EST, [id number], 169.4, cm, 05/22/24 7:55:00 EST, Height Start Date: 06/04/24 Status: Ordered Medication Dispense Status: Completed Quantity: 90.0 Unit: capsule Total Allowed Fills: 1 Fills Dispensed: 0 Opzelura 1.5% topical cream Topically, 2 times a day, 0 Refills, Maintenance, 11/17/23 3:28:00 PM EDT, Partial fill upon patientrequest if the prescription is for a schedule II opioid drug. Start Date: 11/17/23 Status: Ordered Medication Dispense Status: Completed Total Allowed Fills: 1 Fills Dispensed: 0 Pepcid 20 mg oral tablet 1 tablet = 20 mg, By Mouth, 2 times a day, # 180 tablet, 2 Refills, Maintenance, 07/05/24 9:56:00 AMEST, Tablet, [id number], 169.4, cm, 06/26/24 10:39:00 EST, Height Start Date: 07/05/24 Status: Ordered Medication Dispense Status: Completed Quantity: 180.0 Unit: tablet Total Allowed Fills: 3 Fills Dispensed: 0 predniSONE 20 mg oral tablet 0 Refills, Maintenance, 06/26/24 10:37:00 AM EST, Partial fill upon patient request if the prescription is for a schedule II opioid drug. Start Date: 06/26/24 Status: Ordered Medication Dispense Status: Completed Total Allowed Fills: 1 Fills Dispensed: 0 Remedy (Miconazole) 2% topical ointment See Instructions, Topically 2 times a day to affected area, # 4 Gm, 0 Refills, Maintenance, :38:00 AM EDT, [id number], Partial fill upon patient request if the prescription is for a schedule II opioid drug., Topically 2 times a day; to affected area, 169.4, cm, 11/29/22 10:38:00 EDT, Height Start Date: 11/30/22 Status: Ordered Medication Dispense Status: Completed Quantity: 4.0 Unit: g Total Allowed Fills: 1 Fills Dispensed: 0 tacrolimus 0.1% topical ointment Topically, 2 times a day, 0 Refills, Maintenance, 05/02/23 1:17:00 PM EST, Partial fill upon patient request if the prescription is for a schedule II opioid drug. Start Date: 05/02/23 Status: Ordered Medication Dispense Status: Completed Total Allowed Fills: 1 Fills Dispensed: 0 Ventolin HFA 108 mcg/inh inhalation aerosol with adapter 1 puffs, Inhalation, 4 times a day, PRN NEEDED FOR WHEEZING, # 18 each, 5 Refills, Maintenance, 02/08/24 4:49:00 PM EDT, [id number], 169.4, cm, 12/26/23 14:23:00 EDT, Height Start Date: 02/08/24 Status: Ordered Medication Dispense Status: Completed Quantity: 18.0 Unit: each Total Allowed Fills: 1 Fills Dispensed: 0 Problem List Condition Confirmation Course Effective Dates Status H ealth Status Informant Allergic rhinitis Confirmed Active Anxiety Confirmed Active Asthma Confirmed Active Benign positional vertigo Confirmed Active Colon polyp, hyperplastic 1 Confirmed 07/04/18 Active Carpal tunnel syndrome Confirmed Active Chronic back pain Confirmed Active Depression Confirmed Active Eczema Confirmed Active Chronic GERD Confirmed Active Osteoarthritis Confirmed Active PTSD (post-traumatic stress disorder) Confirmed Active Dyshidrotic eczema Confirmed Active 1repeat screening colonoscopy in 2028 Patient Care team information Care Team Personnel Name: Savanna Brown NP Position: [facility] Associate Professional Member Role: PCP Address: [address] [place] [id number] Telecom: Care Team Related Persons Name: RUI TRUJILLO Name: ROZINA TRUJILLO Insurance Providers Guarantor name: GENOVEVA [facility] Information #: 1 Payer: [employer] O Payer Identifier: NA Member Number: [id number] Group Number: [id number] Subscriber Identifier: NA Relationship to Subscriber: self Coverage Type: NA Coverage Verification Date: NA Telecom: NA Address:
--- OUTSIDE RECORDS SUMMARY | 2025-05-05 09:28 | XMS_ITS | Encounter Summary ---
Author Organization [place] [address] Care Team Providers Care Rides Attendant Name Role Phone Royer Snow MD Primary Care Provider Reason for Visit * Reason Comments Knee Pain Right knee injury Encounter Details Date Type Department Care Team (Late st Contact Info) Description 05/05/2025 9:28 AM EST - 05/05/2025 10:23 AM EST Emergency [facility] Emergency [address] [place] [address] Acute pain of right knee (Primary Dx) Discharge Disposition: Home or Self Care Social History Tobacco Use Types Packs/Day Years Used Date Smoking Tobacco: Never Smokeless Tobacco: Never Alcohol Use Standard Drinks/Week Comments Yes 0 (1 standard drink = 0.6 oz pur e alcohol) Sex and Gender Information Value Date Recorded Sex Assigned at Not on file Legal Sex Male 12:08 PM EST Gender Identity Not on file Sexual Orientation Not on file documented as of this encounter Last Filed Vital Signs Vital Sign Reading Time Taken Comments Blood Pressure 122/68 05/05/2025 9:21 AM EST Pulse 79 05/05/2025 9:21 AM EST Temperature 36.3 C (97.4 F) 05/05/2025 9:21 AM EST Respiratory Rate 18 05/05/2025 9:21 AM EST Oxygen Saturation 100% 05/05/2025 9:21 AM EST Inhaled Oxygen Concentration - - Weight 64.9 kg (143 lb) 05/05/2025 9:21 AM EST Height 170.2 cm (5' 7 ) 05/05/2025 9:21 AM EST Body Mass Index 22.4 05/05/2025 9:21 AM EST documented in this encounter Functional Status * Are you deaf or do you have serious difficulty hearing? Answer Date of Assessment Author No 05/05/2025 9:30 AM Chloe Jimenez RN * Are you blind or do you have serious difficulty seeing, even when wearing glasses? Answer Date of Assessment Author No 05/05/2025 9:30 AM Chloe Jimenez RN * Do you have serious difficulty walking or climbing stairs? Answer Date of Assessment Author No 05/05/2025 9:30 AM Chloe Jmienez RN * Do you have serious difficulty dressing or bathing? Answer Date of Assessment Author No 05/05/2025 9:30 AM Chloe Jimenez RN * Because of a physical, mental, or emotional condition, do you have serious difficulty doing errandsalone such as visiting the doctor? Answer Date of Assessment Author No 05/05/2025 9:30 AM Chloe Jimenez RN * Calculated C-SSRS Risk Score (Lifetime/Recent) Answer Date of Assessment Author No Risk Indicated 05/05/2025 9:23 AM Yu Gutierrez RN * [place] Suicide Severity Rating Scale (Screener/Recent Self-Report) Question Answer Date of Assessment Author 1. Wish to be (Past 1 Month) No 025 9:23 AM Yu Gutierrez RN 2. Non-Specific Active Suici leyda Thoughts (Past 1 Month) No 05/05/2025 9:23 AM Polly Gutierrez RN 6. Suicidal Behavior (Lifetime) No 9:23 AM Yu Gutierrez RN documented as of this encounter Mental Status * Because of a physical, mental, or emotional condition, do you have serious difficulty concentrating, remembering, or making decisions? (5 years old or older) Answer Entry Date Author No 05/05/2025 9:30 AM Chloe Jimenez RN documented in this encounter Discharge Instructions * Discharge Instructions* CATERINA Carvalho - 05/05/2025 10:08 AM EST You were seen today for evaluation of right knee pain. X-ray did not reveal any evidence of an acute fracture or dislocation. Physical exam did not reveal any joint laxity or cavus that would be indicative of a ligamentous injury, your pain is most likely secondary to either muscle or meniscal. Youneed an MRI for further evaluation. You have been given a knee immobilizer to prevent further irritation and injury to your knee. Continue to take Tylenol and ibuprofen for additional pain relief. You have been given lidocaine patches which you can apply to affected area. If you do not experience relief with this instead you can use diclofenac gel applied to the affected area. Do not use both at the same time. Use warm compresses for additional relief. Please follow-up with your orthopedic surgeon as we discussed. Please return to the ED if you have any worsening symptoms, unable to walk, increased pain or swelling, redness of the joint, warmth to touch, unable to move, fevers or chills. * Attachments The following attachments cannot be sent through Care Everywhere. * Knee Pain or Injury (Dominican) * RICE: General Info (Dominican) documented in this encounter Medications at Time of Discharge diclofenac (VOLTAREN) 1 % topical gel Apply 2 g topically 4 (four) times a day for 5 days. 40 g 05/05/2025 5 lidocaine 4 % patch Apply 1 patch topically 1 (one) time each day for 5 days. 5 each 05/05/2025 5 documented as of this encounter Ordered Prescriptions Prescription Sig Dispense Quantity Refills Last Filled Start Date End Date diclofenac (VOLTAREN) 1 % topical gel Apply 2 g topically 4 (four) times a day for 5 days. 40 g 05/05/2025 5 lidocaine 4 % patch Apply 1 patch topically 1 (one) time each day for 5 days. 5 each 05/05/2025 5 documented in this encounter Discharge Disposition Disposition Code Departure Means Destination Comment s Home or Self Care documented in this encounter Progress Notes * Julissa Uribe RN - 05/05/2025 10:11 AM EST Patient refused the tylenol and ibuprofen. He stated that he is not a pill person and he hasn't eaten. I explained that I can get food for him and that he is not being given any narcotics. Patient still refused. He will be given a knee immobilizer to apply at home as he is driving. * Yu Mi RN - 05/05/2025 9:19 AM EST Patient to ED for right knee pain. States he had a prior surgery and felt it pull while walking. Reports slight swelling to inner left side of knee. Denies bruising. Ambulating in ED with steady gait independently. * CATERINA Carvalho - 05/05/2025 9:17 AM EST HPI Chief Complaint Patient presents with Knee Pain Right knee injury HPI Mr. Rosario is a 55 year old male with history of previous L and R meniscal tear with repair in this year. Patient reports that he was walking yesterday when he suddenly felt a pull in his right knee. Denies any fall or recent injury. Reports that since then he has been having pain that extends from the medial aspect of his right knee is localized to the front and behind of the knee. Denies any swelling or lower extremity swelling. No history of DVT or PE. No fevers or chills. Has beentaking Advil with little relief. He states that he called his orthopedic doctor Dr. Fallon at [facility], however they were closed today and was instructed to present himself to the ED. has been able to walk without change in his gait however reports pain localized to the right medial patellar region whenbearing weight. Has been using bilateral knee braces for additional relief. No data recorded Patient History Medical History[1] Surgical History[2] Family History[3] Social History Tobacco Use Smoking status: Never Smokeless tobacco: Never Substance Use Topics Alcohol use: Yes Drug use: Yes Review of Systems Review of Systems Physical Exam ED Triage Vitals [05/05/25 0921] Temp Heart Rate Resp BP 36.3 ??C (97.4 ??F) 79 18 122/68 SpO2 Temp Source Heart Rate Source Patient Position 100 % Temporal Radial Sitting BP Location FiO2 (%) Right arm -- Physical Exam Vitals and nursing note reviewed. Constitutional: General: He is not in acute distress. Appearance: Normal appearance. He is normal weight. He is not ill-appearing, toxic-appearing or diaphoretic. Eyes: General: No scleral icterus. Conjunctiva/sclera: Conjunctivae normal. Cardiovascular: Pulses: Normal pulses. Pulmonary: Effort: Pulmonary effort is normal. Abdominal: General: Abdomen is flat. There is no distension. Musculoskeletal: General: Tenderness (Tenderness localized with palpation of medial patellar region) present. No swelling, deformity or signs of injury. Normal range of motion. Cervical back: Normal range of motion and neck supple. Right lower leg: No edema. Left lower leg: No edema. Comments: RLE: 2+ DP 1+ TP pulses, 2+ popliteal, extremity L and R knee equal in size and appearance. No overlying skin changes. No palpable fluid within joint or bursa. No warmth to touch Negative anterior and posterior drawer test Full passive and active ROM, nonpainful RLE LLE 5/5 strength No signs of neurovascular compromise or ischemia on right lower extremity Brisk capillary refill Skin: General: Skin is warm and dry. Capillary Refill: Capillary refill takes less than 2 seconds. Coloration: Skin is not jaundiced or pale. Findings: No bruising, erythema, lesion or rash. Neurological: Mental Status: He is alert. Comments: Intact sensation over right lower extremity. No weakness ED Course & MDM ED Course as of 05/05/25 1015 Sun May 05, 2025 1010 XR Knee 4+ Views Right Independent interpretation of right knee x-ray is no acute fracture or dislocation, joint spaces, no fluid or knee effusion. Impression reading reveals old healed fracture deformity at the proximal fibula as well as quadriceps and patellar enthesophytes. [SO] ED Course User Index [SO] CATERINA Carvalho Clinical Impressions as of 05/05/25 1015 Acute pain of right knee Medical Decision Making Mr. Rosario is a 55 year old male with history of previous L and R meniscal tear with repair in this year. On physical exam he is no acute distress and nontoxic appearing. Independent interpretation of vital signs is hemodynamically stable. Patient with in triage with steady gait independently without assistive devices. Patient was given acetaminophen 1000 mg and ibuprofen 600 mg once along with a lidocaine patch for pain relief. Patient unable to recall aspirin allergy reaction, howeverhe does take ibuprofen regularly for pain. Review of chart reveals no documented reaction and that it was a childhood reaction with possible GI discomfort. Differential diagnosis includes ligamentous injury such as ACL/PCL, meniscal injury, osteoarthritis, rheumatoid arthritis, gout, patellofemoral pain syndrome, knee bursitis, patellar tendinopathy, tibial plateau or distal femur fracture. Low clinical suspicion for DVT given no lower extremity swelling, no prior history, no hypoxia, no tachycardia, no chest pain, no shortness of breath, no hemoptysis, no calf pain. Intact popliteal, DP, TP pulses with brisk capillary refill of the right lower extremity. No signs of acute limb ischemia or neurovascular compromise. There is no joint laxity on anterior or posterior drawer test to suggest ligamentous injury. Underlying infectious causes less likely given noninfectious appearance of the joint-no warmth to touch, no erythema, no swelling. In addition there are no overlying skin changes such as erythema, rash, no warmth to touch streaking erythema that would be suggestive of underlying infection within the bursa or joint itself. I considered septic arthritis however this is less likey given history, lack of fever or systemic symptoms, no immunosuppression, he has full range of motion of the joint, there is no overlying erythema or swelling- no woody induration. Instructed patient to use knee to prevent injury and for symptomatic relief. Given prescription forlidocaine patches as well as diclofenac gel. Patient was instructed to use only one at a time, and to use in conjunction with either acetaminophen and ibuprofen, warm compresses. Patient to follow-up with orthopedic surgeon Dr. Fallon for further evaluation, MRI as there are noemergent findings on exam today, such as infection, ischemia. Patient deemed appropriate for discharge with symptomatic treatment, recommendations to follow-up with PCP and orthopedic follow up with strict return precautions provided. Patient verbalizes understanding and is in agreement with plan. Procedures CATERINA Carvalho 05/05/25 1047 [1] Past Medical History: Diagnosis Date Allergic rhinitis, cause unspecified 10/04/2005 DX:Allergic rhinitis, cause unspecified Carpal tunnel syndrome 10/04/2005 DX:Carpal tunnel syndrome Genital herpes, unspecified 10/04/2005 DX:Genital herpes, unspecified Unspecified asthma(493.90) 10/04/2005 DX:Unspecified asthma(493.90) [2] Past Surgical History: Procedure Laterality Date OTHER SURGICAL HISTORY PROCEDURE: DENIES PREVIOUS SURGERY [3] Family History Problem Relation Name Age of Onset Hypertension Mother Other (Other: AIDS) Mother age 51 Stroke Father age 52 Glaucoma Father Other (Other: AIDS) Father Hypertension Maternal Grandmother Other (Other: kidney disease) Maternal Grandmother Hypertension Maternal Grandfather Other (Other: Kidney disease) Maternal Grandfather Hypertension Uncle Other (Other: Chronic renal failure) Brother on dialysis, pending transplant Other (Other: Chronic renal failure) Uncle on dialysis CATERINA Carvalho 05/05/25 1051 Cosigned by Ambrosio Goddard MD at 05/05/2025 11:41 AM EST documented in this encounter Plan of Treatment Not on file documented as of this encounter Procedures Procedure Name Priority Date/Time Associated Diagnosis Comments XR KNEE 4+ VIEWS RIGHT STAT 05/05/2025 9:48 AM EST documented in this encounter Results * XR Knee 4+ Views Right (05/05/2025 9:48 AM EST) Anatomical Region Laterality Modality Lower Extremities, Knee Right Radiogra [facility] 05/05/2025 10:0 3 AM EST Impressions 05/05/2025 10:03 AM EST FINDINGS/IMPRESSION: No acute fracture or dislocation. Old healed fracture deformity at the proximal fibula. Quadriceps and patellar enthesophytes. Joint spaces are maintained. No knee effusion. -------- FINAL REPORT -------- Dictated By: NIKUNJ AVITIA Dictated Date: 05/05/2025 10:03 ET Assigned Physician: NIKUNJ AVITIA Reviewed and Electronically Signed By: NIKUNJ AVITIA Signed Date: 05/05/2025 10:03 ET Workstation ID: [id number] Transcribed By: Self Edit Transcribed Date: 05/05/2025 10:03 ET Narrative 05/05/2025 10:03 AM EST XR KNEE 4+ VIEWS RIGHT INDICATION: Pain TECHNIQUE: XR KNEE 4+ VIEWS RIGHT COMPARISON: No priors available. Procedure Note Nikunj Avitia MD - 05/05/2025 XR KNEE 4+ VIEWS RIGHT INDICATION: Pain TECHNIQUE: XR KNEE 4+ VIEWS RIGHT COMPARISON: No priors available. IMPRESSION: FINDINGS/IMPRESSION: No acute fracture or dislocation. Old healedfracture deformity at the proximal fibula. Quadriceps and patellarenthesophytes. Joint spaces are maintained. No knee effusion. -------- FINAL REPORT -------- Dictated By: NIKUNJ AVITIA Dictated Date: 05/05/2025 10:03 ET Assigned Physician: NIKUNJ AVITIA Reviewed and Electronically Signed By: NIKUNJ AVITIA Signed Date: 05/05/2025 10:03 ET Workstation ID: [id number] Transcribed By: Self Edit Transcribed Date: 05/05/2025 10:03 ET Ankit DIGGS IMG XR PROCEDURES Final Res ult documented in this encounter Visit Diagnoses Diagnosis Acute pain of right knee- Primary documented in this encounter Administered Medications Inactive Administered Medications - up to 3 most recent administrations Medication Order MAR Action Action Date Dose Rate Site lidocaine 4 % patch 1 patch 1 patch, Topical, Administer over 12 Hours, Once, On 05/05/25 at 1002, For 1 dose, Apply to R knee. Patch Applied 05/05/2025 10:09 AM EST 1 patch Other documented in this encounter Active and Recently Administered Medications Times are shown in EST. Scheduled Medication Order 05/03/2025 05/04/2025 05/05/2025 acetaminophen (TYLENOL) tablet 1,000 mg 1,000 mg, oral, Once, On 05/05/25 at 1002, For 1 dose 1011 (Not Given - Pr ovider: Julissa Uribe RN - Reason: Patient/Resident/Agent refused - education provided ) ibuprofen (ADVIL,MOTRIN) tablet 600 mg 600 mg, oral, Once, On 05/05/25 at 1002, For 1 dose, Administer with food or milk to decrease GI upset 1010 (Not Given - Pr ovider: Julissa Uribe RN - Reason: Patient/Resident/Agent refused - education provided ) lidocaine 4 % patch 1 patch 1 patch, Topical, Administer over 12 Hours, Once, On 05/05/25 at 1002, For 1 dose, Apply to R knee. 1009 (Patch Applied - Provider: Julissa Uribe RN - Comment: right knee)1023 (Due: Patch Removed - Provider: Automatic Discharge Provider - Comment: Time automatically adjusted from order being discontinued) documented in this encounter Orders Medications Ordered That Vish ht Not Have Been Administered Count Last Ordered Date First Ordered Date acetaminophen (TYLENOL) tablet 1,000 mg 1 1 07/05/2024 ibuprofen (ADVIL,MOTRIN) tablet 600 mg 1 documented in this encounter Care Teams Rides Attendant Relationship Specialty Start Date End Date Royer Snow MD [address] [place] [address], [address] [place], [place] PCP - General Internal Medicine 12/10/13 documented as of this encounter
--- NOTE | 2025-05-07 09:37 | A.OFFVIS_ITS ---
Vital Signs 05/07/25 09:42 Height 5 ft 7 in Weight 143 lb BMI 22.4 Intake Visit Reasons: OV- RT Knee Pain Intake Note: Rylan is a 55 year old male who presents with complaints of right knee pain. He describes his pain as sharp in nature. He has failed the last 3 months of conservative treatment which has included Tylenol, ibuprofen, a home exercise program and physical therapy exercises. He denies any locking or giving way. Has had cortisone injections in the past which gave him minimal relief. At this point his right knee pain is interfering with his activities of daily living and his ability to sleep well through the night. Allergies aspirin Allergy (Unknown, Verified 03/07/25 15:27) Unknown penicillin G Allergy (Unknown, Verified 03/07/25 15:27) Unknown Medication List - Last Reconciled 05/07/25 by Valerio Gifford MD albuterol sulfate 90 mcg/actuation (Ventolin HFA) 1 puff inhalation QID PRN famotidine 20 mg PO BEDTIME loratadine 10 mg PO DAILY ruxolitinib 1.5% (Opzelura) appl topical PFSH Medical History GERD (gastroesophageal reflux disease) Seasonal allergies Surgical History Hx of arthroscopy of left knee [place] teeth extracted Social History Household Members Other:: granddaughter Are you a primary aged or disabled care worker to a significant other at home: No Do you presently have visiting nurse or other home services: No Patient Tobacco Use Status: Never used Tobacco Current occupational status: employed 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 Rosario presents with right knee pain due to osteoarthritis. I had a lengthy discussion with the patient regarding the treatment options. He wishes to hold off on further surgery for as long as possible. I agree with this plan. I will see if the patient's insurance company will cover a viscosupplementation injection, such as Durolane, for his right knee. I will see him back once the injection is approved. Feel free to call me at any time should questions regarding his orthopedic management arise. I spent 21 minutes in reviewing the patient's records and imaging studies, seeing the patient and documenting in the medical record. Medications: New methylprednisolone (Medrol (Cornelio)) PO PER PKG DIR 21 ea 0RF Coding Level of Care Code Est Pt Level 3 (13241) Complex visit Add On G2211 Diagnoses Osteoarthritis of right knee M17.11
[2025-05-07 09:42] VITALS: BMI 22.4
--- OUTSIDE RECORDS SUMMARY | 2025-05-07 10:24 | XMS_ITS | Clinical Summary ---
Author Organization [facility] Address [address] [place] [address] Phone Care Team Providers Care Feed Weigher Name Role Phone Royer Snow MD Primary Care Provider [phone] Allergies Active Allergy Reactions Criticality Noted Date Comments Aspirin Unknown 05/05/2025 Penicillins Unknown 05/05/2025 Medications lidocaine 4 % patch Apply 1 patch topically 1 (one) time each day for 5 days. 5 each 5 05/10/20 25 Active diclofenac (VOLTAREN) 1 % topical gel Apply 2 g topically 4 (four) times a day for 5 days. 40 g 5 05/10/20 25 Active Encounters Date Type Department Care Team Description 05/05/2025 9:28 AM EST - 05/05/2025 10:23 AM EST Emergency [facility] Emergency [address] [place] [address] Acute pain of right knee (Primary Dx) Discharge Disposition: Home or Self Care from Last 3 Months Surgical History Surgery Date Site/Laterality Comments OTHER [...] Mass Index 22.4 05/05/2025 9:21 AM EST Plan of Treatment Health Maintenance Due Date Last Done Comments Colorectal Cancer Screening: Colonoscopy 1968 Pneumococcal Vaccine: 50+ Years (1 of 2 - PCV) 01/07/1987 RSV Immunization Adult Patients (1 - Risk 50-74 years 1-dose series) 01/07/2018 Zoster Vaccines (1 of 2) 01/07/2018 Depression Screening 06/06/2024 COVID-19 Vaccine (3 - 2024-2 6 season) 2025 10/30/2020, 10/09/2020 Influenza Vaccine (#1) 2025 04/23/2010 Cholesterol Screening (Lipid Panel) 05/05/2025 HIV Screening 05/05/2025 Hepatitis C Screening 05/05/2025 Social Influencers of Health Screening 05/05/2025 DTaP,Tdap,and Td Vaccines (4 - Td or Tdap) 10/05/2028 10/05/2018, 02/23/2013, 08/06/2004 Hepatitis A Vaccines Aged Out 10/04/2008 No [...] on patient's age to complete this topic Procedures Procedure Name Priority Date/Time Associated Diagnosis Comments XR KNEE 4+ VIEWS RIGHT STAT 05/05/2025 9:48 AM EST from Last 3 Months Results * XR Knee 4+ Views Right (05/05/2025 9:48 AM EST) Anatomical Region Laterality Modality Lower Extremities, Knee Right Radiogra phic Imaging 05/05/2025 10:0 3 AM EST Impressions [...] Signed Date: 05/05/2025 10:03 ET Workstation ID: [id number] Transcribed By: Self Edit Transcribed Date: 05/05/2025 [...] Signed Date: 05/05/2025 10:03 ET Workstation ID: [id number] Transcribed By: Self Edit Transcribed Date: 05/05/2025 10:03 ET Ankit DIGGS IMG XR PROCEDURES Final Res ult from Last 3 Months Insurance Care Teams Feed Weigher Relationship Specialty Start Date End Date Royer Snow MD [address] [place] [address] [address], [address] [place], [place] PCP - General Internal Medicine 12/10/13
== END 2025-05-07 09:55 | disposition home or self-care (01) ==
LOC: HO.HOS 09:35
PROVIDERS: PCP Nurse Practitioner Family; Visit Provider Orthopaedic Surgery
DX: M17.11 Unilateral primary osteoarthritis, right knee (principal)
CPT/HCPCS: 99213

== ENCOUNTER 2025-05-16 14:57 | Outpatient (AMB) | payer BC, SELFPAY ==
[2025-05-16 15:01] VITALS: BMI 33.2
--- NOTE | 2025-05-16 15:01 | MHC.OFFVIS ---
Vital Signs 05/16/25 15:01 Height 4 ft 7 in Weight 143 lb BMI 33.2 Intake Visit Reasons: Bilateral knee pain Intake Note: Rylan is a 55 year old male who presents with complaints of bilateral knee pains. The patient describes his pains as sharp in nature. He has had cortisone injections in the past which gave him minimal relief. He has not had a viscosupplementation injection. Has failed the last 3 months of conservative treatment which has included Tylenol, anti-inflammatory medicines, a home exercise program and physical therapy exercises. At this point the patient's bilateral knee pains are interfering with his activities of daily living and his ability to sleep well through the night. Allergies aspirin Allergy (Unknown, Verified 05/16/25 15:01) Unknown penicillin G Allergy (Unknown, Verified 05/16/25 15:) Unknown Medication List - Last Reconciled 05/17/25 by Valerio Gifford MD albuterol sulfate 90 mcg/actuation (Ventolin HFA) 1 puff inhalation QID PRN famotidine 20 mg PO BEDTIME loratadine 10 mg PO DAILY methylprednisolone (Medrol (Cornelio)) PO PER PKG DIR ruxolitinib 1.5% (Opzelura) appl topical PFSH Medical History GERD (gastroesophageal reflux disease) Seasonal allergies Surgical History Hx of arthroscopy of left knee [place] teeth extracted Social History Household Members Other:: granddaughter Are you a primary managed care analyst to a significant other at home: No Do you presently have visiting nurse or other home services: No Patient Tobacco Use Status: Never used Tobacco Current occupational status: employed 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 Physical Exam Vital Signs: BMI result Body Mass Index 33.2 Extrem Other: Bilateral knee examination shows minimal effusions, palpable crepitus with range motion, pain with range of motion, no instability Office Procedures AMB Joint Injection/Aspiration Joint Injection/Aspiration Primary Site: Right Knee Prep: site was prepped using aseptic technique Injected: 60 mg of, Durolane, with 3 mL of and 1% plain Lidocaine Procedure: The patient tolerated the procedure well Coding 22623 - Large joint Procedure code (CPT) selection complete Results Reviewed Results Reviewed: X-rays of the patient's bilateral knees taken previously show joint space narrowing, subchondral sclerosis, no acute bony abnormalities Assessment & Plan Assessment & Plan (1) Osteoarthritis of right knee: Code(s): M17.11 - Unilateral primary osteoarthritis, right knee Category: Medical (2) Osteoarthritis of left knee: Code(s): M17.12 - Unilateral primary osteoarthritis, left knee Category: Medical (3) Pain in both knees: Code(s): M25.561 - Pain in right knee; M25.562 - Pain in left knee Plan Mr. Rosario presents with bilateral knee pains due to osteoarthritis. The risks and benefits of a right knee Durolane viscosupplementation injection were discussed at length with the patient. The patient wished to proceed. He tolerated the injection well. I will see if the patient's insurance company will cover a Durolane viscosupplementation injection for his left knee as well. I will see him back once the injection is available. Feel free to call me at any time should questions regarding his orthopedic management arise. I spent 20 minutes in reviewing the patient's records and imaging studies, seeing the patient and documenting in the medical record. Orders: Orders AMB Joint Injection/Aspiration 05/16/25 M17.11 - Unilateral primary osteoarthritis, right knee Coding Level of Care Code Est Pt Level 3 (81247) Add On Problem Visit Only Diagnoses Osteoarthritis of right knee M17.11 Osteoarthritis of left knee M17.12 Pain in both knees M25.561; M25.562 CPT Codes Coding - 26558 Large joint: 51707 - Large joint ([id number])
--- OUTSIDE RECORDS SUMMARY | 2025-05-16 22:32 | XMS_ITS | Data Portability ---
Author Organization CATERINA Morgan s [address] Address [address] [place] [address] Assessment No assessment recorded. Plan of Treatment Reminders Order Date Submit Date Provider Last Modified By Organization Details Last Modified Time Details Appointments None recorded. Lab None recorded. Referral None recorded. Procedures None recorded. Surgeries None recorded. Imaging None recorded. Medication Orders meloxicam 15 mg tablet 2023 024 [facility]/Pharmacy #[id number], [phone] [place], [address], 19:28:13 Patient TargetsNo targets recorded. Patient Instructions Encounter Date Encounter Id Patient Instructions Last Modified By Organization Details Last Modified Time 04/28/2024 [id number] shoulder pain: care instructions Not available 04/28/2024 19:28:11 biceps tendinitis: exercises Not available 04/28/2024 19:28:11 Reason for Referral None Reported. Problems Name Problem SNOMED Code Status Onset Date Resolution Date Notes Provider Name and Address Organization Details Recorded Time Asthma 637104552 Active Carolkaleigh sexton, [place] - [facility] 04/28/2024 19:18:34 Problem Notes None recorded. Medical Equipment None Reported. Allergies Allergen ID Allergen Name Allergen Category Reaction Reaction Severity Criticality Documentation Date Start Date Code Code System Note Provider Name and Address Organization Details Recorded Time 9022485 aspirin medicatio n Not available Not available Not available 04/28/2024 1191 RxNorm Carol sexton, [place] - [facility] 19:18:00 7892136 Product containin g penicilli n (product) medicatio n Not available Not available Not available 04/28/2024 73836 8001 SNOMED Carol sexton [facility] - [facility] [...] mass index (BMI) Body weight Oxygen saturation Heart rate Respiratory rate Body temperature Systolic And Diastolic Provider Name and Address Organization Details Last Updated DateTime 4 170.18 cm 22.4 kg/m2 92412.7 1 g 100 % 98 /min 20 /min 97.8 [degF] 110/70 mm[Hg] Carol Young [facility] 19:26:08 Social History Question Answer Notes LastModified by Organizat ion Details LastModified Time Tobacco Smoking Status Never Smoker CATERINA Fields [facility] 04/28/2024 19:19:03 Have You Had [...] Functional Status Question Answer Note LastModified by Organizat ion Details LastModified Time Do you use [...] Diagnosis SNOMED-CT Code Diagnosis ICD10 Code Diagnosis IMO Codes Diagnosis Note [id number] [address] [place] [address] 05/13/2016 11:20:44 05/13/2016 11:36:56 [id number] [address] [place] [address] 08/02/2020 13:25:56 08/02/2020 14:15:46 [id number] [address] [place] [address] 02/15/2021 08:30:13 02/15/2021 09:22:09 [id number] CATERINA Guy [address] [place] [address] 04/28/2024 19:09:11 04/28/2024 19:28:53 Biceps tendinitis [id number] M75.22 You have been diagnosed with a [...] Section Related Observation LastModified by Organization Obdulio philip LastModified Time None Recorded Concern Status LastModified by Organization Details LastModified Time None Recorded Advance Directives Directive None Recorded Payers Insurance Date Sequence Insurance Name Policy Number Policy Vega Covered Member ID Vega Member ID Guarantor Name 04/28/2024 1 [facility] [id number] Rylan Abraham [id number] Rylan Rosario 04/28/2024 1 [facility] [id number] Rylanjad Rosario [id number] Rylan Rosario Notes Date Note Type Note Provider Name and Address Organization Details Recorded Time 04/28/2024 text/html 54 y/o male here with L shoulder pain starting this morning. 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
--- OUTSIDE RECORDS SUMMARY | 2025-05-16 22:32 | XMS_ITS | Clinical Summary ---
Author Organization [facility] Address [address] [place] [address] Phone Care Team Providers Care Detention Officer Name Role Phone Royer Snow MD Primary Care Provider [phone] Allergies Active Allergy Reactions Criticality Noted Date Comments Aspirin Unknown 05/05/2025 Penicillins Unknown 05/05/2025 Medications lidocaine 4 % patch Apply 1 patch topically 1 (one) time each day for 5 days. 5 each 5 05/10/20 25 diclofenac (VOLTAREN) 1 % topical gel Apply 2 g topically 4 (four) times a day for 5 days. 40 g 5 05/10/20 25 Encounters Date Type Department Care Team Description 05/05/2025 9:28 AM EST - 05/05/2025 10:23 AM EST Emergency [facility] Emergency [address] [place] [address] Acute pain of right knee [...] on file Sexual Orientation Not on file Last Filed Vital Signs Vital Sign Reading [...] Signed Date: 05/05/2025 10:03 ET Workstation ID: [id number] Transcribed By: Self Edit Transcribed Date: 05/05/2025 [...] Signed Date: 05/05/2025 10:03 ET Workstation ID: [id number] Transcribed By: Self Edit Transcribed Date: 05/05/2025 10:03 ET Ankit DIGGS IMG XR PROCEDURES Final Res ult from Last 3 Months Insurance Care Teams Detention Officer Relationship Specialty Start Date End Date Royer Snow MD [address] [place] [address] [address] [place], [place] PCP - General Internal Medicine 12/10/13
== END 2025-05-16 15:27 | disposition home or self-care (01) ==
LOC: HO.HOS 14:58
PROVIDERS: PCP Nurse Practitioner Family; Visit Provider Orthopaedic Surgery
DX: M17.0 Bilateral primary osteoarthritis of knee (principal); M25.561 Pain in right knee; M25.562 Pain in left knee
CPT/HCPCS: 20610; 99213

== ENCOUNTER → 2025-05-16 14:57 | Outpatient (BNVA) | payer BC, SELFPAY | PROVIDERS: PCP Nurse Practitioner Family; Visit Provider Orthopaedic Surgery | DX: M17.0 Bilateral primary osteoarthritis of knee (principal) | CPT/HCPCS: 20610; J2003; J7318 ==

== ENCOUNTER 2025-05-29 10:51 | Outpatient (AMB) | payer BC, SELFPAY ==
--- OUTSIDE RECORDS SUMMARY | 2025-05-29 10:56 | XMS_ITS | Clinical Summary ---
Author Organization [facility] Address [address] [place] [address] Phone Care Team Providers Care Blast Furnace Helper Name Role Phone Royer Snow MD Primary Care Provider [phone] Allergies Active Allergy Reactions Criticality Noted Date [...] EST - 05/05/2025 10:23 AM EST Emergency [facility] Emergency [address] [place] [address] Acute pain of right knee [...] Signed Date: 05/05/2025 10:03 ET Workstation ID: [id number] Transcribed By: Self Edit Transcribed Date: 05/05/2025 [...] Signed Date: 05/05/2025 10:03 ET Workstation ID: [id number] Transcribed By: Self Edit Transcribed Date: 05/05/2025 10:03 ET Ankit DIGGS IMG XR PROCEDURES Final Res ult from Last 3 Months Insurance Care Teams Blast Furnace Helper Relationship Specialty Start Date End Date Royer Snow MD [address] [place] [address] [address] [place], [place] PCP - General Internal Medicine 12/10/13
--- OUTSIDE RECORDS SUMMARY | 2025-05-29 10:56 | XMS_ITS | Data Portability ---
Author Organization [facility]ER[facility] Morgan [facility] [address] Address [address] [place] [address] Assessment No assessment recorded. Plan of Treatment Reminders Order Date Submit Date Provider Last Modified By Organization Details Last Modified Time Details Appointments None recorded. Lab None recorded. Referral None recorded. Procedures None recorded. Surgeries None recorded. Imaging None recorded. Medication Orders meloxicam 15 mg tablet 2023 024 [facility]/Pharmacy #[id number], [phone] [place], [address], 19:28:13 Patient TargetsNo targets recorded. Patient Instructions Encounter Date Encounter Id Patient Instructions Last Modified By Organization Details Last Modified Time 04/28/2024 [id number] shoulder pain: care instructions Not available 04/28/2024 19:28:11 biceps tendinitis: exercises Not available 04/28/2024 19:28:11 Reason for Referral None Reported. Problems Name Problem SNOMED Code Status Onset Date Resolution Date Notes Provider Name and Address Organization Details Recorded Time Asthma 133884135 Active Carolkaleigh sexton, PA - [facility] 04/28/2024 19:18:34 Problem Notes None recorded. Medical Equipment None Reported. Allergies Allergen ID Allergen Name Allergen Category Reaction Reaction Severity Criticality Documentation Date Start Date Code Code System Note Provider Name and Address Organization Details Recorded Time 6118273 aspirin medicatio n Not available Not available Not available 04/28/2024 1191 RxNorm Carol sexton, PA - [facility] 19:18:00 1415793 Product containin g penicilli n (product) medicatio n Not available Not available Not available 04/28/2024 05568 8001 SNOMED Carol sexton [facility] - [facility] [...] Updated DateTime 4 170.18 cm 22.4 kg/m2 64470.7 1 g 100 % 98 /min 20 [...] ICD10 Code Diagnosis IMO Codes Diagnosis Note [id number] [address] [facility] [place] [address] 05/13/2016 11:20:44 05/13/2016 11:36:56 [id number] [address] [facility] [place] [address] 08/02/2020 13:25:56 08/02/2020 14:15:46 [id number] [address] [facility] [place] [address] 02/15/2021 08:30:13 02/15/2021 09:22:09 [id number] CATERINA Guy [address] [place] [address] 04/28/2024 19:09:11 04/28/2024 19:28:53 Biceps tendinitis [id number] M75.22 You have been diagnosed with a [...] ID Guarantor Name 04/28/2024 1 [facility] [id number] Rylan Abraham [id number] Rylan Rosario 04/28/2024 1 [facility] [id number] Rylanjad Rosario [id number] Rylan Rosario Notes Date Note Type Note Provider Name and Address Organization Details Recorded Time 04/28/2024 text/html 54 y/o male here with L shoulder pain starting this morning. 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
--- NOTE | 2025-05-29 11:34 | MHC.OFFVIS ---
Vital Signs 05/29/25 11:35 Height 5 ft 7 in Weight 140 lb BMI 21.9 Intake Visit Reasons: INJ- Left knee Durolane injection Intake Note: Rylan is a 55 year old male who presents with complaints of left knee pain. The patient describes his pain as sharp in nature. He has failed the last 3 months of conservative treatment. The patient was given a Durolane injection into his right knee on 05/16/2025. He states that he got fairly good relief from that injection. Wishes to hold off on surgery if at all possible. Allergies aspirin Allergy (Unknown, Verified 05/16/25 15:01) Unknown penicillin G Allergy (Unknown, Verified 05/16/25 15:01) Unknown Medication List - Last Reconciled 05/31/25 by Valerio Gifford MD albuterol sulfate 90 mcg/actuation (Ventolin HFA) 1 puff inhalation QID PRN famotidine 20 mg PO BEDTIME loratadine 10 mg PO DAILY methylprednisolone (Medrol (Cornelio)) PO PER PKG DIR ruxolitinib 1.5% (Opzelura) appl topical PFSH Medical History GERD (gastroesophageal reflux disease) Seasonal allergies Surgical History Hx of arthroscopy of left knee [place] teeth extracted Social History Household Members Other:: granddaughter Are you a primary manager critical care to a significant other at home: No Do you presently have visiting nurse or other home services: No Patient Tobacco Use Status: Never used Tobacco Current occupational status: employed 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 Physical Exam Vital Signs: BMI result Body Mass Index 21.9 Extrem Other: Left knee examination shows a minimal effusion, palpable crepitus with range of motion, pain with range of motion, no instability Office Procedures AMB Joint Injection/Aspiration Joint Injection/Aspiration Primary Site: Left Knee Prep: site was prepped using aseptic technique Injected: 60 mg of, Durolane, with 3 mL of and 1% plain Lidocaine Procedure: The patient tolerated the procedure well Coding 24063 - Large joint Procedure code (CPT) selection complete Results Reviewed Results Reviewed: X-rays of the patient's left knee taken previously show joint space narrowing, subchondral sclerosis, no acute bony abnormalities Assessment & Plan Assessment & Plan (1) Osteoarthritis of left knee: Code(s): M17.12 - Unilateral primary osteoarthritis, left knee Category: Medical Plan Mr. Rosario presents with left knee pain due to osteoarthritis. The risks and benefits of a left knee Durolane viscosupplementation injection were discussed at length with the patient. The patient wished to proceed. He tolerated the injection well. He will continue with his home exercise program. He will contact me prior to his follow-up appointment in 3 months should any questions or concerns arise. Feel free to call me at any time should questions regarding his orthopedic management arise. I spent 22 minutes in reviewing the patient's records and imaging studies, seeing the patient and documenting in the medical record. Orders: Orders AMB Joint Injection/Aspiration 05/29/25 M17.12 - Unilateral primary osteoarthritis, left knee Coding Level of Care Code Est Pt Level 3 (36173) Add On Problem Visit Only Diagnoses Osteoarthritis of left knee M17.12 CPT Codes Coding - 74913 Large joint: 96011 - Large joint ([id number])
[2025-05-29 11:35] VITALS: BMI 21.9
== END 2025-05-29 11:56 | disposition home or self-care (01) ==
PROVIDERS: PCP Nurse Practitioner Family; Visit Provider Orthopaedic Surgery
DX: M17.12 Unilateral primary osteoarthritis, left knee (principal)
CPT/HCPCS: 20610; 99213

== ENCOUNTER → 2025-05-29 10:51 | Outpatient (BNVA) | payer BC, SELFPAY | PROVIDERS: PCP Nurse Practitioner Family; Visit Provider Orthopaedic Surgery | DX: M17.12 Unilateral primary osteoarthritis, left knee (principal) | CPT/HCPCS: 20610; J2003; J7318 ==